=== PATIENT | female | born 1980 | race Caucasian/White ===

== ENCOUNTER → 2023-02-28 09:59 | Outpatient (BNVA) | payer OTHER, SELFPAY | PROVIDERS: Visit Provider Physician Assistant | DX: Z13.89 Encounter for screening for other disorder (principal) ==

== ENCOUNTER → 2023-03-05 08:03 | Outpatient (BNVA) | payer OTHER, SELFPAY | PROVIDERS: Visit Provider Surgery ==

== ENCOUNTER → 2023-03-19 10:00 | Outpatient (BNVA) | payer OTHER, SELFPAY | PROVIDERS: Visit Provider Counselor Mental Health ==

== ENCOUNTER 2023-03-21 09:20 | Outpatient (REF) | payer OTHER, SELFPAY ==
--- NOTE | ~2023-03-21 | XR_ITS ---
EXAMINATION: XR CHEST CLINICAL INFORMATION: Obesity COMPARISON: None available. TECHNIQUE: 2 views of the chest were obtained. FINDINGS: No significant abnormality is noted involving the heart, lungs, mediastinum, bony thorax or soft tissues. Mild curvature of the thoracic spine. XR/XR chest 2V IMPRESSION: Unremarkable examination.
--- NOTE | ~2023-03-21 | US_ITS ---
EXAMINATION: US COMPLETE ABDOMEN WITH LIVER ELASTOGRAPHY CLINICAL INFORMATION: Morbid obesity. COMPARISON: None available. TECHNIQUE: Real-time imaging of the abdominal viscera. Noninvasive ultrasound liver fibrosis assessment is performed using Ramon ElastPQ point quantification shear wave elastography (2D-SWE) with a C5-2 MHz transducer. Multiple elastography samples are obtained. FINDINGS: PANCREAS: Normal. The visualized pancreatic head and body are normal in appearance. The remainder of the pancreas is obscured from visualization by the overlying bowel gas. ABDOMINAL AORTA: The proximal, middle, and distal aortic segments are normal in caliber. INFERIOR VENA CAVA: Visualized portions are normal. LIVER: Normal. The liver demonstrates normal size, contour and slightly increased echogenicity. No focal lesion or intrahepatic biliary duct dilatation. The right lobe measures 13.7 cm in length. The left lobe measures 9.7 cm in length. Portal flow is towards the liver (hepatopetal). Shear wave liver elastography median stiffness is 2.22 m/s (reference: normal median stiffness is 1.3 m/s or less). IQR/median stiffness to assess sampling precision is 0.12 (reference: good quality data set is IQR/median stiffness of 0.15 or less). GALLBLADDER: A 6 mm gallstone is seen towards the neck portion. The gallbladder is physiologically distended without evidence of sludge, polyps, wall thickening or pericholecystic fluid. COMMON BILE DUCT: Normal in caliber measuring 0.5 cm in diameter. RIGHT KIDNEY: Normal. No hydronephrosis. No renal calculi or focal parenchymal lesions. The kidney measures 9.9 cm in maximum dimension. LEFT KIDNEY: Normal. No hydronephrosis. No renal calculi or focal parenchymal lesions. The kidney measures 9.7 cm in maximum dimension. SPLEEN: Normal. The spleen measures 10.4 cm in maximum dimension. FREE FLUID: None. US/US abdomen comp w elastography IMPRESSION: 1. There is mild increase in hepatic echotexture, consistent with fatty infiltration or hepatocellular disease. Please correlate clinically. No focal hepatic mass or intrahepatic biliary dilatation is seen. 2. Liver elastography: Measuremensts are consistent with compensated advanced chronic liver disease. 3. There is mild cholelithiasis. REFERENCE: Society of Radiologists in Ultrasound Liver Stiffness Thresholds (2020): LIVER STIFFNESS THRESHOLDS: *Liver Stiffness equal or less than 1.3 m/s: High probability of being normal. *Liver Stiffness less than 1.7 m/s: In the absence of other known clinical signs, rules out compensated advanced chronic liver disease. *Liver Stiffness 1.7-2.1 m/s: Suggestive of compensated advanced chronic liver disease but need further test for confirmation. *Liver Stiffness over 2.1 m/s: Rules in compensated advanced chronic liver disease. *Liver Stiffness over 2.4 m/s: Suggestive of clinically significant portal hypertension. QUALITY OF DATA SET: *IQR/Median value equal or less than 0.15 implies a quality data set. *IQR/Median value over 0.15 implies a poor quality data set. SIGNIFICANT CHANGE FROM PRIOR EXAM: Significant change if liver stiffness measurement is 10% or greater from prior exam. OTHER CONSIDERATIONS: The stage of liver fibrosis may be overestimated in the setting of acute hepatitis, liver inflammation, elevated liver function tests, hepatic vascular congestion, obstructive cholestasis, non-fasting state, and infiltrative diseases such as amyloidosis and lymphoma. In some patients with NAFLD, the liver stiffness thresholds for compensated advanced chronic liver disease may be lower. In causes other than viral hepatitis and NAFLD, liver stiffness thresholds are not well established.
--- NOTE | 2023-03-21 09:26 | ECG_ITS ---
Test Reason : E66.01 Blood Pressure : / mmHG Vent. Rate : 057 BPM Atrial Rate : 057 BPM P-R Int : 160 ms QRS Dur : 080 ms QT Int : 434 ms P-R-T Axes : 033 010 014 degrees QTc Int : 422 ms Sinus bradycardia Otherwise normal ECG No previous ECGs available Referred By: Mark Jennings Electronically Signed By:NOLAN MORALES
[2023-03-21 09:52] LABS: MANUAL DIFF FLAG NO
[2023-03-21 10:34] LABS: Basophils Absolute Auto 0.1 X10*3/uL (0.0-0.2); Basophils Percent Auto 1.1 % (0-2); Eosinophils Absolute Auto 0.1 X10*3/uL (0.0-0.4); Eosinophils Percent Auto 1.7 % (0-4); Hematocrit 38.1 % (37.0-47.0); Hemoglobin 11.6 g/dl (12.0-16.0); Imm Gran Abs Auto 0.01 X10*3/uL (0.00-0.03); Imm Gran Pct Auto 0.2 % (0.0-0.4); Lymphocytes Absolute Auto 1.7 X10*3/uL (1.2-4.9); Lymphocytes Percent Auto 35.7 % (20-40); Mean Corpuscular HGB Conc 30.4 g/dl (31.0-35.0); Mean Corpuscular Hemoglobin 24.7 pg (27.0-33.0); Mean Corpuscular Volume 81.1 fL (80.0-98.0); Mean Platelet Volume 10.7 fL (9.4-12.3); Monocytes Absolute Auto 0.3 X10*3/uL (0.1-1.2); Monocytes Percent Auto 6.1 % (2-11); Neutrophils Absolute Auto 2.6 x10*3/uL (2.0-8.3); Neutrophils Percent Auto 55.2 % (45-73); Platelet Count 284 X10*3/uL (160-400); Red Cell Distribution Width 15.4 % (11.0-16.0); White Blood Count 4.8 X10*3/uL (4.8-10.8)
[2023-03-21 11:00] LABS: Estimated Average Glucose 94 mg/dL; Hemoglobin A1c % 4.9 %
[2023-03-21 11:08] LABS: Alanine Aminotransferase 13 U/L (0-31); Albumin Level 4.2 g/dL (3.5-5.0); Alkaline Phosphatase 66 U/L (39-117); Anion Gap 14 (12-20); Aspartate Amino Transferase 16 U/L (5-31); Bilirubin Total 0.4 mg/dL (0.0-1.0); Blood Urea Nitrogen 16 mg/dL (9-16); C Reactive Protein 0.66 mg/dL (< or = 0.50); Calcium 9.1 mg/dL (8.4-10.2); Carbon Dioxide 26 mmol/L (22-29); Chloride 106 mmol/L (96-108); Cholesterol 209 mg/dL; Estimated Glomerular Filt Rate > 60; Glucose Random 84 mg/dL (60-115); HDL Cholesterol 43 mg/dL; Iron 33 mcg/dL (30-160); LDL Cholesterol Calculated 141 mg/dl; Percent Iron Saturation 9 % (15-50); Potassium 4.3 mmol/L (3.3-5.1); Sodium 142 mmol/L (135-145); Total Iron Binding Capacity 360 mcg/dL (228-428); Total Protein 7.4 g/dL (6.5-8.0); Triglycerides 127 mg/dL; Unsaturated Iron Binding 327 ug/dL
[2023-03-21 11:38] LABS: Ferritin 9 ng/mL (10-250); Folate 16.4 ng/mL (> or = 4.0); Insulin 3 uU/mL (2-29); TSH reflex Free T4 4.13 uIU/mL (0.32-4.0); Vitamin B12 443 pg/mL (200-900); Vitamin D 25-OH Total 31.3 ng/mL (>30)
[2023-03-21 12:16] LABS: Free T4 (Free Thyroxine) 0.96 ng/dL (0.71-1.85)
[2023-03-22 18:49] LABS: PTHI 47 pg/mL (16-77)
[2023-03-25 14:59] LABS: H Pylori Breath Test Negative (Negative)
[2023-03-29 01:29] LABS: Zinc 86 mcg/dL (60-130)
== END 2023-03-21 09:21 | disposition home or self-care (01) ==
LOC: HO.US 09:20
PROVIDERS: PCP Nurse Practitioner Family; Visit Provider Surgery
DX: E66.01 Morbid (severe) obesity due to excess calories (principal); F32.A Depression, unspecified; F41.9 Anxiety disorder, unspecified; E78.5 Hyperlipidemia, unspecified; M19.90 Unspecified osteoarthritis, unspecified site
CPT/HCPCS: 36415; 71046; 76705; 76981; 80053; 80061; 82306; 82607; 82728; 82746; 83013; 83036; 83525; 83540; 83970; 84425; 84439; 84443; 84590; 84630; 85025; 86140; 93005

== ENCOUNTER → 2023-03-30 10:39 | Outpatient (BNVA) | payer OTHER, SELFPAY | PROVIDERS: PCP Nurse Practitioner Family; Visit Provider Surgery ==

== ENCOUNTER → 2023-04-04 08:08 | Outpatient (BNVA) | payer OTHER, SELFPAY | PROVIDERS: PCP Nurse Practitioner Family; Visit Provider Surgery ==

== ENCOUNTER → 2023-04-11 10:51 | Outpatient (BNVA) | payer OTHER, SELFPAY | PROVIDERS: PCP Nurse Practitioner Family; Visit Provider Dietitian, Registered | DX: E66.01 Morbid (severe) obesity due to excess calories (principal); Z71.3 Dietary counseling and surveillance | CPT/HCPCS: 97802 ==

== ENCOUNTER 2023-05-07 10:14 | Outpatient (AMB) | payer OTHER, SELFPAY ==
--- NOTE | 2023-05-07 09:14 | MHC.WMTHER ---
Intake Intake Visit Reasons: VIDEO f/u Allergies Penicillins Allergy (Mild, Verified 03/30/23 10:44) Unknown phenergan Allergy (Uncoded 03/30/23 10:44) Hallucinations PFSH Medical History Anxiety Depression DJD (degenerative joint disease) Hyperlipemia Morbid obesity Surgical History No history of previous surgery Family History Mother Diabetes Father Lung cancer Brother Heart disease Brother Cancer Brother No problems noted. Brother No problems noted. Sister Chronic pain Fibromyalgia Sister No problems noted. Sister Breast cancer Son No problems noted. Daughter No problems noted. Social History Alcohol intake: current Alcohol intake frequency: a few times a month Patient Tobacco Use Status: Never used Tobacco Behavioral Health Assessment Weight Management Therapy Therapy Notes Details PT is a 42 year old, , female who presents for a Follow up after completing assessment on 03/19 as part of the Surgical Weight -loss program. PT reported today she is doing very well with meal plan, reported to be focusing on conscious eating and been realizing the importnce of having scheduled/consistent meals for less hunger/cravings. We repeated BES and scores decreased, showing patient has made behavioral changes and is in the right path. PT has been cleared since 03/19 from the behavioral health standpoint. Presenting Concerns Referral Source WMP provider. Reason for referral Completion of behavioral health assessment as part of process for weight-loss surgery. Precipitating Event Medical issues. Living Situation Current Living Situation Own At risk of losing current housing? No Satisfied with current living situation? Yes Comments P lives with and 2 children. Food/Weight/Diet Expectations of change Goal to lose 10% of your weight before surgery, which is about 19lbs. Ultimate weight goal: 179lbs before surgery History/Relationship with food PT describes her relationship with food as challenging , as is an Up and down relationship. She's Never hungry in the morning, basically before staring the program, she didn't have an structure for meals and would snack while watching TV. Used to skip breakfast, mainly eat when she felt like it and will have dinner at home. 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 History/Relationship with weight Grew up overweight. Highest weight is current weight. Lowest weight 113 as a teen. After 2nd she gained weight. For the past couple years she has experience stress eating, tends to make unhealthy choices, and overeating. History/Relationship with dieting [employer] watchers multiple times. Active with gym, She was more successful losing weight before having children. Binge Eating Do you frequently eat large amounts of food in short periods of time, not feeling physically hungry? Yes Do you feel out of control when you eat a large amount of food in a short period of time? Yes Do you eat large amounts of food rapidly and typically alone? No Night Eating Do you wake up at least once during the night to eat? No If you wake up in the night, do you find that it is necessary to eat something in order to fall back asleep? No Do you have little or no appetite in the morning and feel very hungry in the evening, often overeating between dinner and when you go to bed? Yes Social History Family history and relationship 14 years ago. 2 children (15 y/o son and 17 y/o daughter). 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 has several medical complications. 1 cat. Developmental history and status None Social support friends, family. 3 co-workers had bariatric surgery. Community support None. Gnosticism/Spirituality Sikhism. not attending restoration consistently. Cultural/Ethnic information . Legal Involvement and History Current or historical involvement with the legal system? none. Education Highest grade completed Masters Degree in Counseling Preferred learning style Auditory, Verbal and Written Currently enrolled in educational program? No Interested in further educational program? 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 No Meaningful activities Gardening, yard work, family activities, kids sporting events. Financial Situation Describe current financial situation Comfortable Financial assistance? None Service Service? No Mental Health and Addiction Treatment Current/Past substance abuse? No Current/Past addictive behavior concerns? No Psychiatric history Was in counseling 14 years ago, attended [facility] for a short period of time. PCP is prescribing Paxil for mood/anxiety and Gabapentin as needed for anxiety/stress. Never hospitalized for MH. Medical and Physical Health Summary Additional Medical History not covered in history None Sexual History concerns None Physical exam in the last year? Yes Pain Screening Current pain? No Pain in the last few months? Yes (due sciatica.) Medications Is the patient compliant with medications? Yes Does the patient have Avendaño Guardian in place? Not applicable Does the patient use complimentary health approaches? No Trauma/Abuse History History of trauma? No Questionnaires Binge Eating Scale Group 1 A. I don't feel self-conscious about my wt. or body size when I'm with others. B. I feel concerned about how I look to others, but it normally does not make me fell disappointed with myself C. I do get self-conscious about my appearance and wt. which makes me feel disappointed in myself. D. I feel very self-conscious about my wt. and frequently I feel intense shame and disgust for myself. I try to avoid social contacts because of my self-consciousness. Response Group 1: C Group 2 A. I don't have any difficulty eating slowly in the proper manner. B. Although I seem to gobble down foods, I don't end up feeling stuffed because of eating to much. C. At times, I tend to eat quickly and then, I feel uncomfortably full afterwards. D. I have the habit of bolting down my food, without really chewing it. When this happens I usually feel uncomfortably stuffed because I've eaten to much. Response Group 2: A Group 3 A. I feel capable to control my eating urges when I want to. B. I feel like I have failed to control my eating more than the average person. C. I feel utterly helpless when it comes to feeling in control of my eating urges. D. Because I feel so helpless about controlling my eating I have become very desperate about trying to get control. Response Group 3: A Group 4 A. I don't have the habit of eating when I'm bored. B. I sometimes eat when I'm bored, but often I'm able to get busy and get my mind off food. C. I have a regular habit of eating when I'm bored, but occasionally, I can use some other activity to get my mind off eating. D. I have a strong habit of eating when I'm bored. Nothing seems to help me breath the habit. Response Group 4: B Group 5 A. I'm usually physically hungry when I eat something. B. Occasionally, I eat something on impulse even though I really am not hungry. C. I have the regular habit of eating foods, that I might not really enjoy, to satisfy a hungry feeling even though physically, I don't need the food. D. Although I'm not physically hungry, I get a hungry feeling in my mouth that only seems to be satisfied when I eat a food, like sandwich, that fills my mouth. Sometimes, when I eat the food to satisfy my mouth hunger, I then spit the food out so I won't gain weight. Response Group 5: A Group 6 A. I don't feel any guilt or self-hate after I overeat. B. After I overeat, occasionally I feel guilt or self-hate. C. Almost all the time I experience strong guilt or self-hate after I overeat. Response Group 6: B Group 7 A. I don't lose total control of my eating when dieting even after periods when I overeat. B. Sometimes when I eat a forbidden food on a diet, I feel like I blew it and eat even more. C. Frequently, I have the habit of saying to myself, I've blown it now, why not go all the way, when I overeat on a diet. When that happens I eat more. D. I have a regular habit of starting a strict diets for myself but I break the diets by going on an eating binge. My life seems to be either a feast or famine. Response Group 7: C Group 8 A. I rarely eat so much food that I feel uncomfortably stuffed afterwards. B. Usually about once a month, I each such a quantity of food, I end up feeling very stuffed. C. I have regular periods during the month when I eat large amounts of food, either at mealtime or at snacks. D. I eat so much food that I regularly feel quite uncomfortable after eating and sometimes a bit nauseous. Response Group 8: A Group 9 A. My level of calorie intake does not go up very high or go down very low on a regular basis. B. Sometimes after I overeat, I will try to reduce my caloric intake to almost nothing to compensate for the excess calories I've eaten. C. I have a regular habit of overeating during the night. It seems that my routine is not to be hungry in the morning but overeat in the evening. D. In my adult years, I have had week-long periods where I practically starve myself. This follows periods when I overeat. It seems I live a life of either feast or famine. Response Group 9: A Group 10 A. I usually am able to stop eating when I want to. I know when enough is enough. B. Every so often, I experience a compulsion to eat which I can't seem to control. C. Frequently, I experience strong urges to eat which I seem unable to control, but at other times I can control my eating urges. D. I feel incapable of controlling urges to eat. I have a fear of not being able to stop eating voluntarily. Response Group 10: A Group 11 A. I don't have any problem stopping eating when I feel full. B. I usually can stop eating when I feel full but occasionally overeat leaving me feeling uncomfortably stuffed. C. I have a problem stopping eating once I start and usually I feel uncomfortably stuffed after I eat a meal. D. Because I have a problem not being able to stop eating when I want, I sometimes have to induce vomiting to relieve my stuffed feeling. Response Group 11: A Group 12 A. I seem to eat just as much when I'm with others, Family social gatherings as when I'm by myself. B. Sometimes, when I'm with other persons, I don't eat as much as I want to eat because I'm self-conscious about my eating. C. Frequently, I eat only a small amount of food when others are present, because I'm very embarrassed about my eating. D. I feel so ashamed about overeating that I pick times to overeat when I know no one will see me. I feel like a closet eater. Response Group 12: A Group 13 A. I eat three meals a day with only an occasional between meal snack. B. I eat 3 meals a day, but I also normally snack between meals. C. When I am snacking heavily, I get in the habit of skipping regular meals. D. There are regular periods when I seem to be continually eating, with no planned meals. Response Group 13: A Group 14 A. I don't think much about trying to control unwanted eating urges. B. At least some of the time, I feel my thoughts are pre-occupied with trying to control my eating urges. C. I feel that frequently I spend much time thinking about how much I ate or about trying not to eat anymore. D. It seems to me that most of my waking hours are pre-occupied by thoughts about eating or not eating. I feel like I'm constantly struggling not to eat. Response Group 14: B Group 15 A. I don't think about food a great deal. B. I have strong craving for food but they last only for brief periods of time. C. I have days when I can't seem to think about anything else but food. D. Most of my days seem to be pre-occupied with thoughts about food. I feel like I live to eat. Response Group 15: B Group 16 A. I usually know whether or not I'm physically hungry. I take the right portion of food to satisfy me. B. Occasionally, I feel uncertain about knowing whether or not I'm physically hungry. A these times it's hard to know how much food I should take to satisfy me. C. Even though I might know how many calories I should eat, I don't have any idea what is a normal amount of food for me. Response Group 16: A Binge Eating Score: 8 Score less than 17 Minimal Risk Score between 18-26 Moderate Risk Score between 27-46 High Risk Assessment & Plan Assessment & Plan (1) Adjustment disorder: Code(s): F43.20 - Adjustment disorder, unspecified (2) Eating disorder: Code(s): F50.9 - Eating disorder, unspecified Plan -PT is cleared and there is no need to f/up with this provider. -Clinician has advised client about available resources if ever in need to access additional support and has encourage client to participate in post-op groups. Telehealth Telehealth Location of provider rendering services: other (Home office, [place], [place]. ) Location of patient: address on file Patient Identification confirmed using: Name, : Yes Telehealth method: video Patient verbally consented to treatment: Yes Patient verbally consented to billing insurance company: Yes Patient informed of any privacy concerns related to visit: Yes Minutes spent on Phone/Video with Pt.: 45 Coding Level of Care Code Established Pt Tele Psytx 45 mins (54017) Patient Type Established Diagnoses Adjustment disorder F43.20 Eating disorder F50.9 Time Spent (min) 45
== END 2023-05-07 11:11 | disposition home or self-care (01) ==
LOC: HO.HBST 10:14
PROVIDERS: PCP Nurse Practitioner Family; Visit Provider Counselor Mental Health
DX: F43.20 Adjustment disorder, unspecified (principal); F50.9 Eating disorder, unspecified
CPT/HCPCS: 90834

== ENCOUNTER → 2023-05-07 10:14 | Outpatient (BNVA) | payer OTHER, SELFPAY | PROVIDERS: PCP Nurse Practitioner Family; Visit Provider Counselor Mental Health ==

== ENCOUNTER 2023-05-09 09:39 | Outpatient (REF) | payer OTHER, SELFPAY ==
--- NOTE | ~2023-05-09 | FL_ITS ---
EXAMINATION: XR FLUOROSCOPY UPPER GI WITH AIR CLINICAL INFORMATION: Obesity. COMPARISON: None available. TECHNIQUE: Air-contrast upper GI examination. FINDINGS: There is normal apposition of vocal cords while saying E. There is normal elevation of the soft palate while saying candy. Patient swallowed thin and thick barium and half-inch diameter barium tablet without difficulty. No nasopharyngeal reflux or tracheal aspiration identified. No Zenker's diverticulum is seen. There is normal esophageal motility. No gastroesophageal reflux was elicited. No hiatal hernia seen. No mucosal abnormality appreciated. The stomach demonstrates normal distensibility without abnormal mass or ulceration. There is no delay in gastric emptying. The duodenal bulb and sweep appear unremarkable. FLUOROSCOPY TIME: 1.8 minutes FLUOROSCOPIC IMAGES: 14. DAP: 16.799 Gy-cm2 (chin-centimeter squared) FL/FL upper GI w air IMPRESSION: Unremarkable examination.
== END 2023-05-09 09:40 | disposition home or self-care (01) ==
LOC: HO.XRAY 09:39
PROVIDERS: PCP Nurse Practitioner Family; Visit Provider Surgery
DX: E66.01 Morbid (severe) obesity due to excess calories (principal); E78.5 Hyperlipidemia, unspecified
CPT/HCPCS: 74246

== ENCOUNTER → 2023-05-09 09:41 | Outpatient (BNV) | payer OTHER, SELFPAY | PROVIDERS: PCP Nurse Practitioner Family; Visit Provider Radiology Diagnostic Radiology | DX: E66.9 Obesity, unspecified (principal) | CPT/HCPCS: 74246 ==

== ENCOUNTER 2023-05-10 10:00 | Outpatient (AMB) | payer OTHER, SELFPAY ==
[2023-05-10 08:40] VITALS: BMI 36.8
--- NOTE | 2023-05-10 08:40 | A.OFFVIS_ITS ---
Intake VS Expanded 05/10/23 08:40 Height 4 ft 11 in Weight 182 lb 3.2 oz BMI 36.8 Intake Visit Reasons: VIDEO F/U [facility] Wrapper Sorter Required: No Allergies Penicillins Allergy (Mild, Verified 03/30/23 10:44) Unknown phenergan Allergy (Uncoded 03/30/23 10:44) Hallucinations Medication List - Last Reconciled 05/10/23 by LAUREL Oscar gabapentin 300 mg PO TID hydroxyzine HCl 25 mg PO DAILY levothyroxine (Levoxyl) 25 mcg PO DAILY paroxetine HCl ER 37.5 mg PO DAILY HPI HPI Comments History of Present Illness Details 42 yo female returns to the [facility] clinic for continued pre-op planning. Weight today is 182.2 pounds with a BMI of 36.8 Initial weight on 03/05/23 was 198.4 with a BMI of 40 Weight loss to date, 16.2 pounds, 8.1 % TBWL Pt reports that things are going fine. Hungry in early afternoon Meal plan: 2 Orgain shakes (1/2 scoop in almond milk), 9-11, 12-2 one Isopure Infusion protein shake with 1/4 scoop in 8oz water, 9-11p 2 Zone Perfect protein bars, 3-5, 11-1a one meal 8 forks of protein and 8 forks of salad or vegetables), 6 pm Drinking 48 oz water Exercise plan: treadmill, elliptical, walking, Matheus Pierre video, Burning [id number] calories per week. [facility] Medical History Anxiety Depression DJD (degenerative joint disease) Hyperlipemia Morbid obesity Surgical History No history of previous surgery Family History Mother Diabetes Father Lung cancer Brother Heart disease Brother Cancer Brother No problems noted. Brother No problems noted. Sister Chronic pain Fibromyalgia Sister No problems noted. Sister Breast cancer Son No problems noted. Daughter No problems noted. Social History Alcohol intake: current Alcohol intake frequency: a few times a month Patient Tobacco Use Status: Never used Tobacco Assessment & Plan Assessment & Plan (1) Obesity: Code(s): E66.9 - Obesity, unspecified Plan: making good progress change meal plan to as she has not been having the bar at 11-1 am but wants to keep it in the plan, will eliminate the 1/4 scoop isopure shake 2 Orgain shakes (1/2 scoop in almond milk), 9-11a, 12-2p 2 Zone Perfect protein bars, 3-5p, 8-10p one meal 8 forks of protein and 8 forks of salad or vegetables), 6 pm Reminded of upcoming appt w Dr Hercules 06/04/23 Telehealth Telehealth Location of provider rendering services: practice address Location of patient: address on file Patient Identification confirmed using: Name, : Yes Telehealth method: video Patient verbally consented to treatment: Yes Patient verbally consented to billing insurance company: Yes Patient informed of any privacy concerns related to visit: Yes Minutes spent on Phone/Video with Pt.: 12 Coding Level of Care Code Tele Est Pt Level 3 (58077) Diagnoses Obesity E66.9 Time Spent (min) 18
== END 2023-05-10 10:55 | disposition home or self-care (01) ==
LOC: HO.HBS 10:00
PROVIDERS: PCP Nurse Practitioner Family; Visit Provider Physician Assistant Surgical
DX: E66.9 Obesity, unspecified (principal); Z68.36 Body mass index [BMI] 36.0-36.9, adult
CPT/HCPCS: 99213

== ENCOUNTER → 2023-05-10 10:00 | Outpatient (BNVA) | payer OTHER, SELFPAY | PROVIDERS: PCP Nurse Practitioner Family; Visit Provider Physician Assistant Surgical ==

== ENCOUNTER 2023-05-18 08:31 | Outpatient (AMB) | payer OTHER, SELFPAY ==
[2023-05-18 08:33] VITALS: BP 127/58; PULSE 66; BMI 36.8
--- NOTE | 2023-05-18 08:33 | A.OFFVIS_ITS ---
Intake Vital Signs 05/18/23 08:33 Height 4 ft 11 in Weight 182 lb BMI 36.8 BP 127/58 L Blood Pressure Location Rt brachial Position Sitting Pulse 66 Intake Visit Reasons: Gallbladder, 1 mo follow up Intake Note: This patient presents for a one month follow-up for gallbladder. Patient denies complaints at this time. Director Underwriter Sales Required: No Shipboard Intelligence Analyst: Shipboard Intelligence Analyst offered & declined Accompanied by: Self / Same As Patient Allergies Penicillins Allergy (Mild, Verified 05/18/23 08:38) Unknown phenergan Allergy (Uncoded 05/18/23 08:38) Hallucinations Medication List - Last Reconciled 05/18/23 by Az Arteaga MD gabapentin 300 mg PO TID hydroxyzine HCl 25 mg PO DAILY levothyroxine (Levoxyl) 25 mcg PO DAILY paroxetine HCl ER 37.5 mg PO DAILY HPI HPI Comments History of Present Illness Details The patient is a 42-year-old woman with a lifelong struggle with obesity who is enrolled in the surgical weight loss program and during her workup, noted to have a 6 mm gallstone in the neck of her gallbladder as well as hepatic fibrosis with the shear wave of 2.22 and NAFLD. Patient denies any personal or family history of biliary disease. She notes intermittent issues with indigestion but is always assume that these are secondary to dietary indiscretion or overeating but she denies any tip biliary colic type symptoms. The patient returns for follow-up and continues to deny any significant symptoms. In fact, the patient notes that on her bariatric preoperative diet she has no further indigestion and no symptoms suggestive of biliary colic. She is congratulated on her interval weight loss and notes she is tentatively headed towards sleeve gastrectomy and the half of May. She otherwise denies interval change. She denies any prior intra-abdominal surgery. [facility] Medical History Anxiety Depression DJD (degenerative joint disease) Hyperlipemia Morbid obesity Surgical History No history of previous surgery Family History Mother Diabetes Father Lung cancer Brother Heart disease Brother Cancer Brother No problems noted. Brother No problems noted. Sister Chronic pain Fibromyalgia Sister No problems noted. Sister Breast cancer Son No problems noted. Daughter No problems noted. Social History Alcohol intake: current Alcohol intake frequency: a few times a month Patient Tobacco Use Status: Never used Tobacco Review of Systems Const All systems reviewed & are unremarkable except as noted in HPI and below Reports as per HPI Physical Exam On exam she is in good spirits She is nontoxic Sclera anicteric Abdomen is obese and soft with no tenderness and no obvious hernias Results Reviewed Results Reviewed: Abdominal ultrasound dated 03/21/2023 shows is stiff liver/fibrosis at 2.22; a 6 mm gallstone is noted in the neck of the gallbladder and NAFLD is noted Patient's labs show white blood cell count of 4.8 with normal differential, mild anemia with a hemoglobin of 11.6 with hypochromic indices and iron studies are low, platelet count 284 K BUN 16, creatinine 0.73 Hemoglobin A1c is 4.9 Liver function tests within normal parameters Assessment & Plan Assessment & Plan (1) Cholelithiasis: Code(s): K80.20 - Calculus of gallbladder without cholecystitis without obstruction (2) NAFLD (nonalcoholic fatty liver disease): Code(s): K76.0 - Fatty (change of) liver, not elsewhere classified (3) Liver fibrosis: Code(s): K74.00 - Hepatic fibrosis, unspecified (4) BMI 37.0-37.9, adult: Code(s): Z68.37 - Body mass index [BMI] 37.0-37.9, adult (5) Obesity: Code(s): E66.9 - Obesity, unspecified (6) Hyperlipemia: Code(s): E78.5 - Hyperlipidemia, unspecified Plan The patient continues to deny any symptoms related to her gallbladder and was hopeful that her cholecystectomy could be done at the time of sleeve gastrectomy. I reviewed available data to explain this practice is not typically endorsed. The patient voiced concerns regarding her bariatric surgery time line and is encouraged to follow-up with Dr. Jennings in the bariatric program as previously arranged. She will contact me if she has indigestion or bandlike abdominal pain and I explained this may impact on her bariatric surgery schedule, but since she has been asymptomatic, I do not anticipate this. Following bariatric surgery, the patient is free to contact the office regarding her gallstones and the patient noted that she would likely do this later this year or early next year. Coding Level of Care Code Est Pt Level 4 (34331) Diagnoses Cholelithiasis K80.20 NAFLD (nonalcoholic fatty liver disease) K76.0 Liver fibrosis K74.00 BMI 37.0-37.9, adult Z68.37 Obesity E66.9 Hyperlipemia E78.5
== END 2023-05-18 09:19 | disposition home or self-care (01) ==
PROVIDERS: PCP Nurse Practitioner Family; Visit Provider Surgery
DX: K80.20 Calculus of gallbladder without cholecystitis without obstruction (principal); K76.0 Fatty (change of) liver, not elsewhere classified; K74.00 Hepatic fibrosis, unspecified; Z68.37 Body mass index [BMI] 37.0-37.9, adult; E66.9 Obesity, unspecified; E78.5 Hyperlipidemia, unspecified
CPT/HCPCS: 99214

== ENCOUNTER → 2023-05-18 08:31 | Outpatient (BNVA) | payer OTHER, SELFPAY | PROVIDERS: PCP Nurse Practitioner Family; Visit Provider Surgery ==

== ENCOUNTER 2023-06-04 07:51 | Outpatient (AMB) | payer OTHER, SELFPAY ==
--- NOTE | 2023-06-04 11:05 | A.OFFVIS_ITS ---
Intake VS Expanded 06/04/23 11:17 Height 4 ft 11 in Weight 176 lb BMI 35.5 Body Fat 81.3 Body Fat Percentage 46.2 Free Fat Mass 95 Visceral Mass 18 Water Mass 64.9 BMR 1,291 Intake Visit Reasons: TV Follow Up SWL Allergies Penicillins Allergy (Mild, Verified 05/18/23 08:38) Unknown phenergan Allergy (Uncoded 05/18/23 08:38) Hallucinations HPI TV Follow Up SWL HPI Details Start time: 11.03am, End time: 11.23am ?I spent 15 minutes speaking with the patient on the phone plus an additional 5 minutes reviewing and updating records for a total of 20 minutes HPI Comments History of Present Illness Details Overall weight loss: 21.8lbs, or 11% TBWL Is doing 2 Orgain protein shakes (1/2 scoop each in 8oz almond milk), 1 Zone Perfect protein bar and one meal (8 forkfuls of protein and 8 forkfuls of salad or vegetables) Exercise: Gym x4-5/wk doing the treadmill x4/wk for 500-600 calories or the stationary bike for 200 calories plus the treadmill for 400 calories PFSH Medical History Anxiety Depression DJD (degenerative joint disease) Hyperlipemia Morbid obesity Surgical History No history of previous surgery Family History Mother Diabetes Father Lung cancer Brother Heart disease Brother Cancer Brother No problems noted. Brother No problems noted. Sister Chronic pain Fibromyalgia Sister No problems noted. Sister Breast cancer Son No problems noted. Daughter No problems noted. Social History Alcohol intake: current Alcohol intake frequency: a few times a month Patient Tobacco Use Status: Never used Tobacco Assessment & Plan Assessment & Plan (1) Hypothyroidism: Code(s): E03.9 - Hypothyroidism, unspecified (2) Obesity: Code(s): E66.9 - Obesity, unspecified Plan: 1. Plan for lap sleeve gastrectomy including upper GI endoscopy. All tests has been completed and reviewed and the patient is cleared for the surgery. ?If diaphragmatic or ventral hernias are present at time of surgery, these will be repaired laparoscopically as well. Risks and complications were discussed in detail including possible conversion to an open procedure, anastomotic leak, bleeding requiring transfusion, small bowel obstruction, , DVT and pulmona ry embolism, cardiac, or pulmonary complications, as senior living complications such as anastomotic ulcer, insufficient weight loss and vitamin deficiencies. I emphasized the importance of close follow-up, adherence to instructions and good communication. So far she has proven to be an excellent communicator and very compliant with all our directions accomplishing a great weight loss. I believe that she is an excellent candidate and she is ready. 2. Please change the nutritional plan to one Orgain protein shake (1/2 scoop each in 8oz almond milk) at 9am-11am, 1 Zone Perfect protein bar at 12pm-2pm, one Orgain protein shake (1/2 scoop each in 8oz almond milk) at 3pm-5pm, one meal (8 forkfuls of protein and 8 forkfuls of salad or vegetables) at 6pm and if needed another Zone Perfect protein bar at 8pm-10pm. 3. Exercise: Continue same exercise plan of Gym x4-5/wk doing the treadmill x4/wk for 500-600 calories or the stationary bike for 200 calories plus the treadmill for 400 calories 4. Send me weight measurements weekly as of next Sunday (3) BMI 35.0-35.9,adult: Code(s): Z68.35 - Body mass index [BMI] 35.0-35.9, adult Medications: New levothyroxine 25 mcg PO DAILY 90 caps 2RF E03.9 - Hypothyroidism, unspecified Telehealth Telehealth Location of provider rendering services: practice address Location of patient: address on file Patient Identification confirmed using: Name, : Yes Telehealth method: voice only Patient verbally consented to treatment: Yes Patient verbally consented to billing insurance company: Yes Patient informed of any privacy concerns related to visit: Yes Minutes spent on Phone/Video with Pt.: 20 Coding Level of Care Code Tele Est Pt Level 3 (57239) Diagnoses Hypothyroidism E03.9 Obesity E66.9 BMI 35.0-35.9,adult Z68.35 Time Spent (min) 20
[2023-06-04 11:17] VITALS: BMI 35.5
== END 2023-06-04 11:24 | disposition home or self-care (01) ==
LOC: HO.HBS 07:51
PROVIDERS: PCP Nurse Practitioner Family; Visit Provider Surgery
DX: E03.9 Hypothyroidism, unspecified (principal); E66.9 Obesity, unspecified; Z68.35 Body mass index [BMI] 35.0-35.9, adult
CPT/HCPCS: 99213

== ENCOUNTER → 2023-06-04 07:51 | Outpatient (BNVA) | payer OTHER, SELFPAY | PROVIDERS: PCP Nurse Practitioner Family; Visit Provider Surgery ==

== ENCOUNTER 2023-06-11 08:22 | Outpatient (AMB) | payer OTHER, SELFPAY ==
--- NOTE | 2023-06-11 10:38 | A.OFFVIS_ITS ---
Intake VS Expanded 06/11/23 10:40 Height 4 ft 11 in Weight 176 lb BMI 35.5 Body Fat 81.3 Body Fat Percentage 46.2 Free Fat Mass 95 Visceral Mass 18 Water Mass 64.9 BMR 1,291 Intake Visit Reasons: TV Pre Op LSG 06/21/23 Allergies Penicillins Allergy (Mild, Verified 06/11/23 11:16) Unknown phenergan Allergy (Uncoded 06/11/23 11:16) Hallucinations Medication List - Last Reconciled 06/11/23 by Mark Jennings MD gabapentin 300 mg PO TID hydroxyzine HCl 25 mg PO DAILY levothyroxine (Levoxyl) 25 mcg PO DAILY levothyroxine 25 mcg PO DAILY levothyroxine 25 mcg PO DAILY ondansetron 4 mg PO Q12H pantoprazole 40 mg PO DAILY paroxetine HCl ER 37.5 mg PO DAILY polyethylene glycol 3350 (Miralax) 17 grams PO DAILY sucralfate 10 mL PO BID HPI TV Pre Op LSG 06/21/23 HPI Details Start time: 11.07am, End time: 11.27am ?I spent 15 minutes speaking with the patient on the phone plus an additional 5 minutes reviewing and updating records for a total of 20 minutes HPI Comments History of Present Illness Details Overall weight loss: 21.8lbs, or 11% TBWL Is doing 2 Orgain protein shakes (1/2 scoop each in 8oz almond milk), 1-2 Zone Perfect protein bar and one meal (8 forkfuls of protein and 8 forkfuls of salad or vegetables) Exercise: Gym x4-5/wk doing the treadmill x4/wk for 500-600 calories or the stationary bike for 200 calories plus the treadmill for 400 calories ? PFSH Medical History Anxiety Depression DJD (degenerative joint disease) Hyperlipemia Morbid obesity Surgical History No history of previous surgery Family History Mother Diabetes Father Lung cancer Brother Heart disease Brother Cancer Brother No problems noted. Brother No problems noted. Sister Chronic pain Fibromyalgia Sister No problems noted. Sister Breast cancer Son No problems noted. Daughter No problems noted. Social History Alcohol intake: current Alcohol intake frequency: a few times a month Patient Tobacco Use Status: Never used Tobacco Physical Exam Vital Signs: BMI result Body Mass Index 35.5 Assessment & Plan Assessment & Plan (1) Obesity: Code(s): E66.9 - Obesity, unspecified Plan: 1. Plan for lap sleeve gastrectomy including upper GI endoscopy. All tests has been completed and reviewed and the patient is cleared for the surgery. ?If diaphragmatic or ventral hernias are present at time of surgery, these will be repaired laparoscopically as well. Risks and complications were discussed in detail including possible conversion to an open procedure, anastomotic leak, ble eding requiring transfusion, small bowel obstruction, , DVT and pulmonary embolism, cardiac, or pulmonary complications, as termite treater complications such as anastomotic ulcer, insufficient weight loss and vitamin deficiencies. I emphasized the importance of close follow-up, adherence to instructions and good communication. So far she has proven to be an excellent communicator and very compliant with all our directions accomplishing a great weight loss. I believe that she is an excellent candidate and she is ready. 2. Preop prescriptions were provided and explained the purpose of each one. Need to be purchased preop. Start Pantoprazole now as you get it from the pharmacy, 1 pill per day. Sucralfate and Zofran are for after surgery as needed. 3. Bowel prep: please do 7 packets ?of Miralax mixing each one with a an 8oz glass of water, crystal light, gatorade zero, or propel ?on 06/19/23 and the same amount on 06/20/23. Continue the protein shakes during? the bowel prep. 4. Needs to purchase 1oz medicine cups . 5. Needs to purchase Children's liquid Tylenol for postop pain control. 6. She needs to stop the Gabapentin on 06/16/23. Avoid aspirin, motrin, Advil, Aleve, Ibuprofen, Naproxyn. Tylenol is OK. 7. She needs to purchase the Celebrate 4:1 protein shakes from the hospital's gift shop. 8. Will do basic preop blood work-up any day between Sunday06/12/23 and Sunday06/15/23 fasting for 12 hours and is scheduled to see the Anesthesiologist prior to the day of surgery. 9. Importance of adherence to postop folllow-up and recommendations was underscored and she understands that. 10. Stop food and bars as of tomorrow 06/12/23 and continue with 4 ORGAIN protein shakes (ONE scoop EACH in 8oz almond milk) at 9am-11am, 12pm-2pm, 3pm-5pm, 6pm- 8pm and one more ORGAIN protein shake with TWO scoops in 8oz of almond milk at 9pm-11pm 11. No soups, broths or V8 12. The patient's?medical?history has been reviewed and they are considered low risk for post op DVT and therefore DVT prophylaxis is not considered necessary. Travel after surgery was reviewed. The patient has not disclosed any travel plans during the first 30 days after surgery and they have been advised that within the first 30 days after surgery any bus, plane, train or car travel over 2 hours in duration is contraindicated due to the possibility of developing blood clots from immobility. Any travel, needs to include periods of ambulation of 10 minutes in duration every 2 hours.? Patient was instructed to discuss any plans for travel during this period with their bariatric surgeon.? 13. Please take at the day of surgery the following medications: Levothyroxine only 14. Stop any control pills and don't use them for one month after surgery 15. Absolutely no smoking or vaping, or marijuana until the surgery and for at least the first 4 weeks. Only nicotine patches are allowed. 16. Send me weight measurements on Sunday and then on the day of surgery before you go to the hospital. 17. Avoid any steroids by mouth for any reason. Let me know if someone prescribes them to you (2) BMI 35.0-35.9,adult: Code(s): Z68.35 - Body mass index [BMI] 35.0-35.9, adult Orders: Orders Type and Screen Today E66.9 - Obesity, unspecified, Z68.36 - Body mass index [BMI] 36.0-36.9, adult Comprehensive Met. Panel Today E66.9 - Obesity, unspecified, Z68.36 - Body mass index [BMI] 36.0-36.9, adult C Reactive Protein Today E66.9 - Obesity, unspecified, Z68.36 - Body mass index [BMI] 36.0-36.9, adult Hemoglobin A1c Today E66.9 - Obesity, unspecified, Z68.36 - Body mass index [BMI] 36.0-36.9, adult Insulin Today E66.9 - Obesity, unspecified, Z68.36 - Body mass index [BMI] 36.0- 36.9, adult Lipid Panel Today E66.9 - Obesity, unspecified, Z68.36 - Body mass index [BMI] 36.0-36.9, adult TSH reflex Free T4 Today E66.9 - Obesity, unspecified, Z68.36 - Body mass index [BMI] 36.0-36.9, adult Prothrombin Time INR Today E66.9 - Obesity, unspecified, Z68.36 - Body mass index [BMI] 36.0-36.9, adult Partial Thromboplastin Time Today E66.9 - Obesity, unspecified, Z68.36 - Body mass index [BMI] 36.0-36.9, adult Complete Blood Count Auto Diff Today E66.9 - Obesity, unspecified, Z68.36 - Body mass index [BMI] 36.0-36.9, adult Medications: New pantoprazole 40 mg PO DAILY 30 tabs 2RF K21.9 - Gastro-esophageal reflux disease without esophagitis sucralfate 10 mL PO BID 400 mL 2RF K21.9 - Gastro-esophageal reflux disease without esophagitis ondansetron Only take one every 12 hours as needed if you have nausea 4 mg PO Q12H 20 tabs 0RF nausea and vomiting R11.0 - Nausea polyethylene glycol 3350 (Miralax) Mix each packet with 8oz of water, Crystal light, or Gatorade zero, or Propel and do 7 packets on 06/19/23 and another 7 packets on 06/20/23 17 grams PO DAILY 14 ea 0RF Z01.818 - Encounter for other preprocedural examination Telehealth Telehealth Location of provider rendering services: practice address Location of patient: address on file Patient Identification confirmed using: Name, : Yes Telehealth method: voice only Patient verbally consented to treatment: Yes Patient verbally consented to billing insurance company: Yes Patient informed of any privacy concerns related to visit: Yes Minutes spent on Phone/Video with Pt.: 20 Coding Level of Care Code Tele Est Pt Level 3 (67988) Diagnoses Obesity E66.9 BMI 35.0-35.9,adult Z68.35 Time Spent (min) 20
[2023-06-11 10:40] VITALS: BMI 35.5
== END 2023-06-11 11:28 | disposition home or self-care (01) ==
PROVIDERS: PCP Nurse Practitioner Family; Visit Provider Surgery
DX: E66.9 Obesity, unspecified (principal); Z68.35 Body mass index [BMI] 35.0-35.9, adult
CPT/HCPCS: 99213

== ENCOUNTER → 2023-06-11 08:22 | Outpatient (BNVA) | payer OTHER, SELFPAY | PROVIDERS: PCP Nurse Practitioner Family; Visit Provider Surgery ==

== ENCOUNTER 2023-06-15 08:49 | Outpatient (REF) | payer OTHER, SELFPAY ==
[2023-06-15 09:07] LABS: MANUAL DIFF FLAG NO
[2023-06-15 09:54] LABS: Basophils Percent Auto 0.6 % (0-2); Eosinophils Absolute Auto 0.1 X10*3/uL (0.0-0.4); Eosinophils Percent Auto 1.6 % (0-4); Hematocrit 37.8 % (37.0-47.0); Hemoglobin 11.5 g/dl (12.0-16.0); Imm Gran Abs Auto 0.02 X10*3/uL (0.00-0.03); Imm Gran Pct Auto 0.4 % (0.0-0.4); Lymphocytes Absolute Auto 1.4 X10*3/uL (1.2-4.9); Lymphocytes Percent Auto 27.9 % (20-40); Mean Corpuscular HGB Conc 30.4 g/dl (31.0-35.0); Mean Corpuscular Volume 82.2 fL (80.0-98.0); Mean Platelet Volume 10.9 fL (9.4-12.3); Monocytes Absolute Auto 0.3 X10*3/uL (0.1-1.2); Monocytes Percent Auto 6.7 % (2-11); Neutrophils Absolute Auto 3.1 x10*3/uL (2.0-8.3); Neutrophils Percent Auto 62.8 % (45-73); Platelet Count 324 X10*3/uL (160-400); Red Cell Distribution Width 15.4 % (11.0-16.0)
[2023-06-15 10:01] LABS: Prothrombin Time 11.6 SEC (11.1-13.3)
[2023-06-15 10:03] LABS: Partial Thromboplastin Time 27.7 SEC (26.0-36.4)
[2023-06-15 10:04] LABS: Estimated Average Glucose 97 mg/dL
[2023-06-15 10:39] LABS: Alanine Aminotransferase 11 U/L (0-31); Albumin Level 4.1 g/dL (3.5-5.0); Alkaline Phosphatase 64 U/L (39-117); Anion Gap 13 (12-20); Aspartate Amino Transferase 12 U/L (5-31); Bilirubin Total 0.4 mg/dL (0.0-1.0); Blood Urea Nitrogen 12 mg/dL (9-16); Calcium 9.5 mg/dL (8.4-10.2); Carbon Dioxide 27 mmol/L (22-29); Chloride 105 mmol/L (96-108); Cholesterol 207 mg/dL; Estimated Glomerular Filt Rate > 60; Glucose Random 90 mg/dL (60-115); HDL Cholesterol 47 mg/dL; LDL Cholesterol Calculated 140 mg/dl; Potassium 3.8 mmol/L (3.3-5.1); Sodium 141 mmol/L (135-145); Total Protein 7.4 g/dL (6.5-8.0); Triglycerides 104 mg/dL
[2023-06-15 10:56] LABS: Insulin 3 uU/mL (2-29); TSH reflex Free T4 3.69 uIU/mL (0.32-4.0)
[2023-06-20 22:33] LABS: Vitamin A 44 mcg/dL (38-98)
[2023-06-21 14:29] LABS: Vitamin B1 12 nmol/L (8-30)
== END 2023-06-15 08:50 | disposition home or self-care (01) ==
LOC: HO.LAB 08:49
PROVIDERS: PCP Nurse Practitioner Family; Visit Provider Surgery
DX: M19.90 Unspecified osteoarthritis, unspecified site (principal); F41.9 Anxiety disorder, unspecified; F32.A Depression, unspecified; E78.5 Hyperlipidemia, unspecified; E66.01 Morbid (severe) obesity due to excess calories; Z68.36 Body mass index [BMI] 36.0-36.9, adult
CPT/HCPCS: 36415; 80053; 80061; 83036; 83525; 84425; 84443; 84590; 85025; 85610; 85730; 86140

== ENCOUNTER 2023-06-21 06:02 | Day surgery (SDC) | payer OTHER, SELFPAY ==
[2023-06-13 09:24] VITALS: BMI 35.5
--- NOTE | 2023-06-15 22:21 | MHC.SHP ---
Pre-Procedural Eval Section A Date of Service: 06/15/23 The patient is an INPATIENT: No The History & Physical has been completed within 30 days and I have reviewed it.: Yes Section B Chief Complaint: Obesity, unspecified Relevant Family History (Specify if Yes): No Relevant Social History: None Present Medications: None Medical History: No relevant PMH History of Previous Operations: No relevant previous surgery Allergies: Allergies Allergy/AdvReac Type Severity Reaction Status Date / Time promethazine [From Phenergan] Allergy Intermediate Hallucinati Verified 06/13/23 08:56 ons Penicillins Allergy Unknown childhood Verified 06/13/23 09:22 allergy-reaction unknown Review of Systems Sugical H&P ROS: Negative: Constitution, Cardiovascular, Respiratory, Neurological, Psychiatric, Hem-Onc, Allergic/Immunologic, Gastrointestinal, Genitourinary, Musculoskeletal, Integumentary, Endocrine and Eyes/Ears/Nose/Throat Exam Surgical H&P Exam: Normal: HEENT, Normal: Heart, Normal: Lungs, Normal: Extremities, Normal: Abdomen, Normal: Skin and Normal: Neurological Plan Diagnosis/Plan: Unchanged I have reviewed the history and physical and performed a pertinent physical examination on my patient. No changes have occurred unless specified. Time Spent With Patient Time: Total time managing care of this patient today ____ minutes.
--- NOTE | 2023-06-20 09:11 | HO.ANESPROP2 ---
Documented by User: Amelia Lion NP 06/20/23 09:14 HPI - Anesthesia Eval Consult details Narrative: 42yo F for Gastrectomy Sleeve Egd, poss diaphragmatic hernia, poss Ventral hernia,poss open PMFSH Active Problems Active Problems: All Active Problems (Updated 06/13/23 @ 09:23 by Jossy Vergara RN) Hypothyroidism (Acute) Cholelithiasis (Acute) Liver fibrosis (Acute) NAFLD (nonalcoholic fatty liver disease) (Acute) Obesity (Acute) BMI 37.0-37.9, adult (Acute) BMI 35.0-35.9,adult (Acute) BMI 36.0-36.9,adult (Acute) DJD (degenerative joint disease) (Acute) Hyperlipemia (Acute) Anxiety (Acute) Depression (Acute) Morbid obesity (Acute) Past Medical History Medical History Anxiety Depression DJD (degenerative joint disease) Genital herpes Hyperlipemia Hypothyroid Morbid obesity Family History Family History Mother Diabetes Father Lung cancer Brother Heart disease Brother Cancer Brother No problems noted. Brother No problems noted. Sister Chronic pain Fibromyalgia Sister No problems noted. Sister Breast cancer Son No problems noted. Daughter No problems noted. Surgical History Surgical History No history of previous surgery Social History Social History Are you a primary career development coordinator/teacher to a significant other at home: No Do you presently have visiting nurse or other home services: No Alcohol intake: current Alcohol intake frequency: a few times a month Patient Tobacco Use Status: Never used Tobacco Use of substances other than those prescribed or required for medical reasons: No Have you been hit, kicked, punched, or otherwise hurt by someone within the past year? If so, by whom?: No Are you DNR?: No Advance Directives: No ( is primary contact) Advance Directives Information Provided: Yes Advance Directives on File: No Recently lost weight without trying: No Eating poorly because of decreased appetite: No Nutrition Risks: No Nutritional Risk Patient : No FDLMP: 06/12/23 : No Poor oral hygiene: No (wearing Invislign aligners-bilateral upper missing molars) Meds Allergies Allergy/AdvReac Type Severity Reaction Status Date / Time promethazine [From Phenergan] Allergy Intermediate Hallucinati Verified 06/21/23 06:28 ons Penicillins Allergy Unknown childhood Verified 06/21/23 06:28 allergy-reaction unknown Home Medications Medication Instructions Recorded Confirmed Last Taken Type gabapentin 300 mg capsule 300 mg PO TID PRN Anxiety 02/28/23 06/21/23 06/16/23 History hydroxyzine HCl 25 mg tablet 25 mg PO DAILY PRN Anxiety 02/28/23 06/21/23 06/20/23 History paroxetine HCl 37.5 mg 37.5 mg PO DAILY 02/28/23 06/21/23 06/20/23 History tablet,extended release 24 hr valacyclovir 1 gram tablet 1,000 mg PO DAILY PRN herpes 06/13/23 06/21/23 06/20/23 History outbreak Exam Exam Date and Time: June 20, 2023 0911 Height,Weight and Vital Signs: Height 4 ft 11 in Weight 79.832 kg Pertinent Lab Results Pertinent Lab Results: Laboratory Tests 06/15/23 08:55 Blood Type A Positive Antibody Screen NEGATIVE Laboratory Tests 06/15/23 06/15/23 08:55 08:55 WBC 5.0 Hgb 11.5 L Hct 37.8 Plt Count 324 Sodium 141 Potassium 3.8 Chloride 105 Carbon Dioxide 27 BUN 12 Creatinine 0.81 Narrative Narrative: EKG 02/2023 Vent. Rate : 057 BPM ? ? Atrial Rate : 057 BPM ?? P-R Int : 160 ms? QRS Dur : 080 ms ? ? QT Int : 434 ms ? ? ? P-R-T Axes : 033 010 014 degrees ?? QTc Int : 422 ms ? Sinus bradycardia Otherwise normal ECG No previous ECGs available Assessment and Plan Assessment Anesthesia Assessment: Chart Reviewed Documented by User: Inés Saleh MD 06/21/23 07:21 [facility] [place] Past Medical History Medical History Anxiety Depression DJD (degenerative joint disease) Genital herpes Hyperlipemia Hypothyroid Morbid obesity Family History Family History Mother Diabetes Father Lung cancer Brother Heart disease Brother Cancer Brother No problems noted. Brother No problems noted. Sister Chronic pain Fibromyalgia Sister No problems noted. Sister Breast cancer Son No problems noted. Daughter No problems noted. Family history of problems with anesthesia: No Surgical History Surgical History No history of previous surgery History of Problems with Anesthesia: No Social History Social History Are you a primary career development coordinator/teacher to a significant other at home: No Do you presently have visiting nurse or other home services: No Alcohol intake: current Alcohol intake frequency: a few times a month Patient Tobacco Use Status: Never used Tobacco Use of substances other than those prescribed or required for medical reasons: No Have you been hit, kicked, punched, or otherwise hurt by someone within the past year? If so, by whom?: No Are you DNR?: No Advance Directives: No ( is primary contact) Advance Directives Information Provided: Yes Advance Directives on File: No Recently lost weight without trying: No Eating poorly because of decreased appetite: No Nutrition Risks: No Nutritional Risk Patient : No FDLMP: 06/12/23 : No Poor oral hygiene: No (wearing Invislign aligners-bilateral upper missing molars) Meds Allergies Allergy/AdvReac Type Severity Reaction Status Date / Time promethazine [From Phenergan] Allergy Intermediate Hallucinati Verified 06/21/23 06:28 ons Penicillins Allergy Unknown childhood Verified 06/21/23 06:28 allergy-reaction unknown Home Medications Medication Instructions Recorded Confirmed Last Taken Type gabapentin 300 mg capsule 300 mg PO TID PRN Anxiety 02/28/23 06/21/23 06/16/23 History hydroxyzine HCl 25 mg tablet 25 mg PO DAILY PRN Anxiety 02/28/23 06/21/23 06/20/23 History paroxetine HCl 37.5 mg 37.5 mg PO DAILY 02/28/23 06/21/23 06/20/23 History tablet,extended release 24 hr valacyclovir 1 gram tablet 1,000 mg PO DAILY PRN herpes 06/13/23 06/21/23 06/20/23 History outbreak Exam Airway Mallampati Class: II TM Dist: >3cm Neck ROM: Full Heart: rrr Lungs: cta Assessment and Plan Assessment Anesthesia Assessment: Anesthesia Plan Discussed Final Anesthetic Review Family History of Problems with Anesthesia: No History of Problems with Anesthesia: No NPO: Yes ASA Class: III Final Preanesthetic Review: No Changes in Pt Med Stat, Meds/Allgs Chart Reviewed, Consent Obtained/Reviewed and Anes Risks/Benef Reviewed Patient Risk: Intermediate Procedure Risk: Intermediate Anesthetic Plan Anesthetic Plan: GA
[2023-06-21] VITALS (16 sets, daily range): BP systolic 115–139; BP diastolic 56–74; PULSE 56–84; RESP 14–20; TEMP 36–36.6; O2SAT 95–99
[2023-06-21 06:41] LABS: UPreg QC Valid YES; Urine Pregnancy NEGATIVE (NEGATIVE)
[2023-06-21] MEDS: Lactated Ringers 1,000 ML 100 ML IVCONT ×2 (07:04→22:06)
[2023-06-21] MEDS: Aprepitant 32 MG/4.4 ML VIAL IVPUSH (07:04)
[2023-06-21] MEDS: Lactated Ringers 1,000 ML 999 ML IV (07:05)
--- NOTE | 2023-06-21 07:44 | PM.OP ---
Brief Operative Note Date of Service: 06/21/23 Pre-op diagnosis: Severe obesity with comorbidities (see below) Post-op diagnosis: same Procedure: INITIAL PATIENT BMI ON PRESENTATION AT OUR OFFICE: 40,1 kg/m2 LAST BMI BEFORE SURGERY: 36.1 kg/m2 COMORBIDITIES: hypothyroidism, depression, anxiety, DJD, hyperlipidemia, liver steatosis, liver fibrosis ?The patient presented to the Weight Management Program with significant obesity that was negatively impacting the patient's comorbidities as listed above.? The program is a phased program with a special focus on preoperative medical weight management to promote substantial weight loss and prepare the patients for the second phase of the program: bariatric surgery. The patient participated in an intensive weekly lifestyle ?intervention and exercise program during which the patient ?has lost between the initial office visit and the last preoperative visit 21.8 lbs, or 12% of initial actual body weight. It was deemed appropriate for the patient to now have bariatric surgery. In light of the current Covid-19 pandemic and the well documented strong association of obesity and increased risk of worse outcomes if infected with Covid-19 (REFERENCES:https://pubmed.ncbi.nlm.nih.gov/20562700/,?https://pubmed.ncbi.nlm.nih.gov/15502501/), any delay in undergoing bariatric surgery may lead to the patient's worsening health condition and increased?risk of more severe Covid-19 disease if infected. In addition a recent?study from [facility] published in [facility] [facility] on 10/24/2021 ([email or web address]) found that, among patients with obesity, substantial weight loss achieved with surgery was associated with improved outcomes of COVID-19 infection. The findings suggest that obesity can be a modifiable risk factor for the severity of COVID-19 infection. In addition, the patient met the BMI-criteria for bariatric surgery based on the BMI on initial presentation. The patient should not be penalized for achieving such weight loss because ?it is not sustainable long-term without surgical intervention and it was achieved in preparation for bariatric surgery ?under my direction and based on my published research ([email or web address] and?https://www.soard.org/article/[email or web address](88)30402-X/pdf) ?that a 10% preoperative weight loss improves long-term weight loss after surgery and reduces perioperative complications.? Insurance carriers such as [facility] have endorsed my recommendations ?and have included in their policies criteria to include a 10% preoperative weight loss requirement. PROCEDURE: Esophago-gastroscopy, laparoscopic sleeve gastrectomy and laparoscopic gastropexy INDICATIONS: This is a 42 year-old female who was electively scheduled for laparoscopic, possibly open sleeve gastrectomy. The risks and complications of the procedure were discussed with the patient in advance, particularly the possibility of ; pulmonary embolism; staple line leak; bleeding; GERD; cardiac, pulmonary, or renal complications; as well as long-term problems such as insufficient weight loss, vitamin deficiency, strictures, or ulcers. The patient understood all the risks, and was in agreement to proceed with surgery. DESCRIPTION OF PROCEDURE: After informed consent was obtained from the patient, the patient was given preoperative antibiotics, and was transferred to the operating room. After successful induction of general anesthesia, pneumatic compression devices were placed on both lower extremities. An upper endoscopy was performed next. The oropharynx and esophagus appeared to be within normal limits. There was no diaphragmatic hernia present consistent with the findings of the preoperative upper GI. The stomach was entered. Then after all fluid and air were suctioned and the stomach was fully decompressed, the scope was withdrawn and secured in the mid esophagus. The patient was then prepped and draped in the usual sterile manner, and abdominal access was established at the right upper quadrant with the Tiny technique. A 12 mm blunt port was inserted, and the abdomen was insufflated with CO2 to a pressure of 15 mmHg. Under direct visualization, additional ports were placed, specifically two 5 mm Versi-step ports to the left upper quadrant, and a 5 mm Versi-Step port to the right upper quadrant. 1% lidocaine plain was used to infiltrate all port sites as well as all fascia defects. Following that, the patient was placed in a steep reverse Trendelenburg position. An additional 5 mm port was placed to the right flank for the Mediflex retractor that was used to retract the left lobe of the liver. The gastro-esophageal fat pad was opened with the ultrasonic device (Thunderbeat, Olympus) and the anterior esophagus and hiatus were exposed. The angle of His was opened with the ultrasonic device the fundus of the stomach from any diaphragmatic and splenic attachments. I then opened the gastrocolic ligament between the transverse colon and the greater curvature of the stomach with the ultrasonic device to enter the lesser sac and facilitate the ligation of the short gastric vessels. I started at a mid-point along the greater curvature and using the Thunderbeat, all short gastric vessels were divided all the way to the angle of His until the left quincy was completely dissected at its entirety. I then divided the gastro-colic ligament distally to a distance of about 3-4 cm proximal to the pylorus. The stomach was then divided transversely with two Endo RIVERA-45 purple and three RIVERA-60 articulating purple loads using the Commutable stapler and loads. Every effort was made that the gastric sleeve had a tubular shape and an even caliber throughout. Once the sleeve resection was completed, the staple line of the gastric sleeve was reinforced with Hemoclips. The resected stomach was retrieved without difficulty from the Tiny port. A gastropexy was then performed in order to prevent postoperative GERD and partial gastric volvulus. Several interrupted 2.0 Surgidac sutures were placed between the sleeve's staple line and the previously divided greater omentum and gastro-colic ligament using the Endo-Stitch device. ?An upper endoscopy was performed. There was no narrowing at the GE junction. The scope was easily advanced all the way to the pylorus which was clearly visualized. There was no narrowing anywhere and the sleeve's caliber was even throughout. The sleeve's staple line was inspected and there was no evidence of ischemia, bleeding or dehiscence. At that point the gastroscope was withdrawn from the patient?s mouth while we were decompressing the bowel and the stomach from any remaining air. I looked into the lesser sac to see how the sleeve was situating and it was situating well. There was no bleeding from the staple line, spleen, or short gastric vessels. The Mediflex retractor was removed, and the undersurface of the liver was inspected and there was no bleeding. The patient was placed in supine position. I closed the fascial defect of the 12 mm port site with a figure of eight #1 Polysorb suture. Then 30cc Ropivacaine plain with 10 mg of Dexamethasone were used to infiltrate the fascial closure as well as all skin incisions. At this point, the abdomen was deflated, all ports were removed under direct vision, and no bleeding was noted from any of the port sites. The skin incisions were irrigated with saline and were closed with 4-0 absorbable monofilament sutures. Steri-Strips and OpSites were used to cover all incisions. The patient was extubated and was transferred in stable condition to the recovery room for further care. I was present and performed all fitzgerald parts of the procedure. Mr. Barton was the life enrichment assistant. There were no residents to assist with this case. Bryson Jennings MD, PhD, FACS Surgeon: Mark Jennings MD Anesthesia: GETA, local and other (TAP block) Was an Securities Sales Associate used for this Procedure?: No Securities Sales Associate: Yeison Barton Estimated blood loss (mL): 10 IV fluids (mL): 2,500 Urine output (mL): 0 (No Zambrano to record output) Pathology: other (Stomach) Condition: stable Disposition: PACU
--- NOTE | 2023-06-21 07:47 | P.PNGS_ITS ---
Subjective Subjective Date of Service: 06/22/23 Interval history: Feels well. Mild incisional pain. She is tolerating phase 1 bariatric diet Physical Exam Vital Signs: Vital Signs: Last Vital Signs Temp 97.1 F 06/21/23 06:43 Pulse 56 06/21/23 06:43 Resp 16 06/21/23 06:43 BP 139/69 06/21/23 06:43 Pulse Ox 98 06/21/23 06:43 O2 Del Method Room Air 06/21/23 06:43 BMI result Body Mass Index 35.5 GI: Inspection: Yes normal to inspection, Yes incision (clean, dry and intact) and Yes obesity Palpation (GI): Soft to palpation Extrem: Right lower extremity: normal to inspection (no calf tenderness) Left lower extremity: normal to inspection (no calf tenderness) Objective Data Active Medications Fentanyl (Fentanyl Citrate/Pf 100 Mcg/2 Ml Vial) 25 mcg IVPUSH Q5M PRN; Protocol PRN Reason: Pain, Moderate(Pain Scale 4-6) Lactated Ringer's (Lr) 1,000 mls @ 100 mls/hr IVCONT .Q10H [facility] Last Admin: 06/21/23 07:04 Dose: 100 mls/hr Documented By: PORFIRIO Lactated Ringer's (Lr) 1,000 mls @ 999 mls/hr IV .Q1H1M [facility] Stop: 06/21/23 08:15 Last Admin: 06/21/23 07:05 Dose: 999 mls/hr Documented By: PORFIRIO Ondansetron HCl (Ondansetron Hcl 4 Mg/2 Ml Vial) 4 mg IVPUSH ONCE PRN PRN Reason: Nausea and Vomiting Oxycodone HCl (Oxycodone Hcl Immed Release 5 Mg Tablet) 5 mg PO ONCE PRN PRN Reason: Pain, Severe (Pain Scale 7-10) Labs 06/21/23 10:40 06/21/23 10:25 Labs: Laboratory Results - last 24 hr 06/21/23 06:27 Urine Test NEGATIVE Procedures Date of Service Date of Service: 06/22/23 Progress Note: A&P Assessment and plan (1) Obesity: Status: Acute Assessment and Plan: s/p laparoscopic sleeve gastrectomy and gastropexy Doing well Will check am labs and if OK the patient will be discharged home (2) Anxiety: Status: Acute (3) Depression: Status: Acute (4) DJD (degenerative joint disease): Status: Acute (5) Hyperlipemia: Status: Acute (6) NAFLD (nonalcoholic fatty liver disease): Status: Acute (7) Hypothyroidism: Status: Acute (8) S/P laparoscopic sleeve gastrectomy: Status: Acute Time Spent With Patient Time: Total time managing care of this patient today ____ minutes. Quality Stroke Does the patient have a stroke diagnosis?: No VTE Prior VTE?: No VTE Risk Level:: Surgical - moderate VTE Device Contraindication: N/A - Device Ordered VTE Drug Contraindication: Treatment Not Indicated
--- NOTE | 2023-06-21 09:58 | P.DS_ITS ---
DS: Providers Provider Date of Service: 06/22/23 Primary care physician: Sheri Stone NP DS: Diagnosis Discharge Diagnosis (1) Obesity: Status: Acute (2) Anxiety: Status: Acute (3) Depression: Status: Acute (4) DJD (degenerative joint disease): Status: Acute (5) Hyperlipemia: Status: Acute (6) NAFLD (nonalcoholic fatty liver disease): Status: Acute (7) Hypothyroidism: Status: Acute DS: Summary Hospital Course Hospital Course: ADMITTING DIAGNOSIS: obesity, anxiety, depression, HLD, Hypothyroid ? DISCHARGE DIAGNOSIS: same, s/p laparoscopic sleeve gastrectomy ? PAST SURGICAL HISTORY: none ? PROCEDURE: upper endoscopy, laparoscopic sleeve gastrectomy ? DISCHARGE SUMMARY: ? History of Present Illness: ? The patient is a?42 year-old woman with a BMI of?40 kg/m2 and associated co- morbidities as described above. The patient had extensive work-up,lost?22.9 lbs preoperatively and was electively scheduled for laparoscopic, possible open sleeve gastrectomy and gastropexy. Risks and complications of the surgery were discussed with the patient in advance, particularly the possibility of , pulmonary embolism, anastomotic leak, bleeding, bowel injury, GERD, cardiac, renal or pulmonary complications. The patient understood all the risks and was in agreement with the surgical plan. ? Hospital Course: ? The patient underwent an uneventful laparoscopic sleeve gastrectomy with gastropexy on the day of admission. Postoperatively, the patient was transferred to the surgical floor. The patient received IV Acetaminophen and IV dilaudid for pain control. Patient was started on bariatric phase 1 diet POD #0. On postoperative day one, the patient was feeling well without nausea, vomiting, fevers, or tachycardia. The patient had some mild incisional pain and the abdomen was soft. ? On the morning of postoperative day one, the patient was continued on 1 ounce of water or ice every half hour. During the day, the patient did fairly well, having some incisional pain, but able to ambulate adequately and to tolerate liquids well. ? Since the patient is doing well, we decided that the patient was ready to be discharged. The patient was given instructions to follow-up with me next week and to call my office for any fever over 101, persistent abdominal pain, nausea, vomiting, GERD, symptoms of DVT such as calf tenderness, or leg swelling, or pulmonary embolism such as chest pain or shortness of breath. The patient was also instructed to drink 40-60 ounces of liquids per day using the 1-ounce cups. The patient had been given prescriptions for Tylenol for pain, Zofran prn for nausea, and pantoprazole and carafate previously. The patient was encouraged to ambulate and use the incentive spirometer. The patient was allowed to shower, but no baths, and encouraged to stay active at home. All of these instructions were given to the patient personally. All questions were answered and the patient understood all instructions, the instructions were also given to the patient in print. Time Spent with Patient Time attestation: Total time managing care of this patient today ____ minutes. Discharge coordination time: Less than 30 minutes Quality: Safe Use of Opioids Does Pt have an Active Cancer Diagnosis on the Problem List?: No Quality: Stroke Does the patient have a stroke diagnosis?: No Physical Exam Vital Signs: Vital Signs: Last Vital Signs Temp 97.1 F 06/21/23 06:43 Pulse 56 06/21/23 06:43 Resp 16 06/21/23 06:43 BP 139/69 06/21/23 06:43 Pulse Ox 98 06/21/23 06:43 O2 Del Method Room Air 06/21/23 06:43 BMI result Body Mass Index 35.5 DS: Data Data Completed and Pending Pending studies at discharge: Pending at discharge 06/21/23 08:59 Surgical [PTH] Routine Labs on day of discharge: Laboratory Results - last 24 hr 06/21/23 06:27 Urine Test NEGATIVE Discharge Plan Discharge Patient Disposition: Home, Self-Care Referrals: Sheri Stone NP [Primary Care Provider] - 1 Week Discharge Medications: Continued valacyclovir 1 gram tablet 1,000 mg PO DAILY PRN (Reason: herpes outbreak) levothyroxine 25 mcg tablet 25 mcg PO DAILY Qty: 30 2RF paroxetine HCl 37.5 mg tablet extended release 24 hr 37.5 mg PO DAILY gabapentin 300 mg capsule 300 mg PO TID PRN (Reason: Anxiety) hydroxyzine HCl 25 mg tablet 25 mg PO DAILY PRN (Reason: Anxiety) pantoprazole 40 mg tablet,delayed release (DR/EC) 40 mg PO DAILY Qty: 30 2RF sucralfate 100 mg/mL suspension 10 ml PO BID Qty: 400 2RF No Action ondansetron 4 mg tablet,disintegrating 4 mg PO Q12H PRN (Reason: nausea/vomiting) Discharge Orders: Discharge Order (Routine); Ordered 06/22/23 Ordered By: Mark Jennings Activity on Discharge: No heavy lifting Activity Restrictions/Additional Instructions: No tub baths, sex or returning to work until discussed at first post op appointment. No exercise, alcohol, tobacco or illegal drug use. Continue to use incentive spirometer hourly while awake. Walk in home for 5- 10 minutes every 2 hours during the first week. Follow all instructions in the bariatric handbook and call with any questions.Discharge Instructions 1. Please call your doctor or come back to the emergency room should any new symptoms arise. 2. You will receive a courtesy call from [facility] 24-48 hours after discharge. 3. Activity: abstain from alcohol, practice limited stair climbing, no bending, no driving, no exercise, no illicit substances, no lifting, no sex, no tub bath, no work. 4. Diet: continue as discussed with Dr. Jennings. 5. Dressing Change/Wound Care: Your incision is covered by clear bandages and guaze underneath. If the area is tender, you may apply an ice pack for short intervals (no more than 20 minutes on, followed by at least 20 minutes off). Do not apply heat. Do not use creams, lotions, or topical antibiotics unless instructed to do so by your surgeon. These can cause infection or allergic reaction. 6. Call your doctor if: - Your temperature exceeds 101.5 F - You experience excessive pain or swelling - You have an unexpected reaction to medication - You have excessive bleeding - You experience continued vomiting/nausea - Your incision begins to separate - Your incision shows signs of infection such as increased redness, swelling, excessive pain, heat, or drainage (light blood or clear fluid is normal) 7. General instructions: No lifting greater than 5 lbs for the next 4 weeks[address] driving within 24 hours of taking narcotic pain medications. If you do not move your bowels in the next 2 days, please take milk of magnesia over the counter. Please follow the post op diet and do not advance your diet until you are seen in the office in about 2 weeks. Please walk around your home every hour or two to prevent blood clots from forming in your legs. You do not need to wake from sleeping to walk. Please sleep in a bed or couch to prevent kinking at the hips and knees. Please take your incentive spirometer (your lung manager garage) home with you and use it for the next few days to prevent pneumonias. You may shower, no hot tubs, baths or swimming pools. Please call the office with any questions or concerns such as increasing abdominal pain, fever, chills, shortness of breath, chest pain, leg pain or swelling, or redness or drainage from your incisions. Please stay on stage 3 diet which includes sugar free clear liquids such as ice pops and jello and broth and crystal light. Avoid all carbonation. Please drink 3 protein shakes with at least 25-30 grams of protein daily or 3 of the Celebrate 4:1 shakes which can be purchased in our office. The Celebrate shakes have all of the bariatric vitamins you need if you consume these shakes. If you are drinking other protein shakes, you will need to purchase the Celebrate multivitamins and calcium that we provide in the office (they will provide all the vitamins you need). Please make sure you are consuming at least 40-60 ounces of water in addition to your 3 protein shakes daily. Do not hesitate to contact the office with any questions at . The patient's medical history has been reviewed and they are considered low risk for post op DVT and therefore DVT prophylaxis is not considered necessary. Travel after surgery was reviewed. The patient has not disclosed any travel plans during the first 30 days after surgery and they have been advised that within the first 30 days after surgery any bus, plane, train or car travel over 2 hours in duration is contraindicated due to the possibility of developing blood clots from immobility. Any travel, needs to include periods of ambulation of 10 minutes in duration every 2 hours.? The patient was instructed to discuss any plans for travel during this period with their bariatric surgeon. Discharge Date/Time: 06/22/23 12:30
--- NOTE | 2023-06-21 10:06 | PHA.MEDREC ---
Pharmacy Consult ? Medication Reconciliation Pharmacy has completed the medication reconciliation. Reviewed med rec done by nursing (Anny).
[2023-06-21] MEDS: ondansetron HCL 4 MG/2 ML VIAL IVPUSH (10:18)
[2023-06-21 10:52] LABS: Hematocrit 35.1 % (37.0-47.0); Hemoglobin 10.6 g/dl (12.0-16.0)
[2023-06-21 11:02] LABS: Anion Gap 11 (12-20); Blood Urea Nitrogen 9 mg/dL (9-16); Calcium 9.1 mg/dL (8.4-10.2); Carbon Dioxide 24 mmol/L (22-29); Chloride 108 mmol/L (96-108); Estimated Glomerular Filt Rate > 60; Glucose Random 145 mg/dL (60-115); Potassium 3.7 mmol/L (3.3-5.1); Sodium 139 mmol/L (135-145)
[2023-06-21] MEDS: Metoclopramide HCl 10 MG/2 ML VIAL IVPUSH (16:12)
[2023-06-21] MEDS: Acetaminophen 1,000 MG/100 ML PIGGYBACK 400 MG IV (19:21)
[2023-06-21] MEDS: 0.9 % Sodium Chloride Flush 3 ML SYRINGE IVFLUSH (19:21)
[2023-06-21] MEDS: Famotidine/PF 20 MG/2 ML VIAL IVPUSH (19:21)
[2023-06-22] MEDS: Acetaminophen 1,000 MG/100 ML PIGGYBACK 400 MG IV ×2 (01:53→08:22)
[2023-06-22 01:59] VITALS: BP 121/63; PULSE 55; RESP 18; TEMP 36.2; O2SAT 97
[2023-06-22 05:39] LABS: MANUAL DIFF FLAG NO
[2023-06-22 05:43] LABS: Basophils Percent Auto 0.1 % (0-2); Hematocrit 32.2 % (37.0-47.0); Hemoglobin 9.8 g/dl (12.0-16.0); Imm Gran Abs Auto 0.03 X10*3/uL (0.00-0.03); Imm Gran Pct Auto 0.4 % (0.0-0.4); Lymphocytes Percent Auto 13.1 % (20-40); Mean Corpuscular HGB Conc 30.4 g/dl (31.0-35.0); Mean Corpuscular Hemoglobin 24.5 pg (27.0-33.0); Mean Corpuscular Volume 80.5 fL (80.0-98.0); Mean Platelet Volume 10.8 fL (9.4-12.3); Monocytes Absolute Auto 0.5 X10*3/uL (0.1-1.2); Monocytes Percent Auto 6.9 % (2-11); Neutrophils Percent Auto 79.5 % (45-73); Platelet Count 283 X10*3/uL (160-400); Red Cell Distribution Width 15.2 % (11.0-16.0); White Blood Count 7.5 X10*3/uL (4.8-10.8)
[2023-06-22] MEDS: Levothyroxine Sodium 25 MCG TABLET PO (05:58)
[2023-06-22 06:07] LABS: Anion Gap 13 (12-20); Blood Urea Nitrogen 8 mg/dL (9-16); Calcium 8.8 mg/dL (8.4-10.2); Carbon Dioxide 24 mmol/L (22-29); Chloride 105 mmol/L (96-108); Estimated Glomerular Filt Rate > 60; Glucose Random 95 mg/dL (60-115); Sodium 138 mmol/L (135-145)
[2023-06-22 07:17] VITALS: BP 123/62; PULSE 53; RESP 17; TEMP 36.7; O2SAT 98
[2023-06-22] MEDS: Lactated Ringers 1,000 ML 100 ML IVCONT (07:39)
[2023-06-22] MEDS: Famotidine/PF 20 MG/2 ML VIAL IVPUSH (08:22)
--- NOTE | 2023-06-22 08:49 | MHC.CM.PN ---
CM MET WITH PT AT BEDSIDE. PT LIVES [facility]. INDEPENDENT AND EMPLOYED F/T. PT WILL CONSIDER DOING A HCP WHILE HERE. COVID VAX X3 PCP GIRMA BELL DP: PT HAS BEEN MEDICALLY CLEARED FOR DC HOME, NO SERVICES. SPOUSE WILL TRANSPORT HOME.
--- NOTE | 2023-06-22 12:12 | HO.POSTANES ---
Post Anesthesia Evaluation Post Anesthesia Evaluation Date of Service: 06/22/23 Vital Signs: Vital Signs Temp Pulse Resp BP Pulse Ox O2 Del Method 06/22/23 07:17 98.0 F 53 17 123/62 98 Room Air 06/22/23 01:59 97.1 F 55 18 121/63 97 Room Air Anesthesia: General Endotracheal-GETA Mental Status: Awake Pain Control: Satisfactory Nausea/Vomiting: None Hydration: Adequate Anesthesia-Related Issues: No Anes. Related Issues
== END 2023-06-22 12:30 | disposition home or self-care (01) ==
LOC: HO.SSS 10:00 → HO.S3 10:25
PROVIDERS: Nurse Practitioner; Physician Assistant Surgical; PCP Nurse Practitioner Family; Visit Provider Surgery
PROC: (CPT 43845; principal; 2023-06-21 07:30)
DX: E66.01 Morbid (severe) obesity due to excess calories (principal); Z68.36 Body mass index [BMI] 36.0-36.9, adult; K21.9 Gastro-esophageal reflux disease without esophagitis; F41.1 Generalized anxiety disorder; F32.A Depression, unspecified; E78.5 Hyperlipidemia, unspecified; M19.90 Unspecified osteoarthritis, unspecified site; K76.0 Fatty (change of) liver, not elsewhere classified; E03.9 Hypothyroidism, unspecified; Z79.899 Other long term (current) drug therapy; Z88.0 Allergy status to penicillin; Z88.8 Allergy status to other drugs, medicaments and biological substances
CPT/HCPCS: 43775; 43659; 36415; 80048; 81025; 85014; 85018; 85025; 86850; 86900; 86901; 88304; 88305; 88307; 88342; A4649; C9088; C9145; J0131; J1100; J1170; J1956; J2250; J2371; J2405; J2765; J2795; J3010

== ENCOUNTER → 2023-06-21 06:02 | Outpatient (BNV) | payer OTHER, SELFPAY | PROVIDERS: PCP Nurse Practitioner Family; Visit Provider Surgery | DX: E66.01 Morbid (severe) obesity due to excess calories (principal); Z68.36 Body mass index [BMI] 36.0-36.9, adult | CPT/HCPCS: 43659; 43775; 99024 ==

== ENCOUNTER 2023-06-26 12:59 | Outpatient (AMB) | payer OTHER, SELFPAY ==
--- NOTE | 2023-06-26 13:29 | A.OFFVIS_ITS ---
Intake VS Expanded 06/26/23 13:38 Height 4 ft 11 in Weight 167 lb 3.2 oz BMI 33.8 BP 112/60 Blood Pressure Location Lt brachial Blood Pressure Position Sitting Pulse 66 Pulse Source Pulse Oximeter Temp 98.0 F Temperature Source Tympanic Pulse Oximetry 98 Oxygen Delivery Method Room Air Body Fat 69.8 Body Fat Percentage 41.8 Free Fat Mass 97.2 Muscle Mass 92.4 Visceral Mass 10.0 Water Mass 69.4 BMR 1,368 Intake Visit Reasons: (OV) 5 Days PO LSG 06/21/23 Allergies promethazine [From Phenergan] Allergy (Intermediate, Verified 06/26/23 13:33) Hallucinations Penicillins Allergy (Unknown, Verified 06/26/23 13:33) childhood allergy-reaction unknown HPI HPI Comments History of Present Illness Details 42 yo female pod 5 s/p LSG on 06/21/[address] Jennings Homero 3 celebrate 4 in 1 w 1 scoop each and 12 oz additional water pos BM no sig pain PFSH Medical History Anxiety Depression DJD (degenerative joint disease) Genital herpes Hyperlipemia Hypothyroid Morbid obesity Surgical History No history of previous surgery Family History Mother Diabetes Father Lung cancer Brother Heart disease Brother Cancer Brother No problems noted. Brother No problems noted. Sister Chronic pain Fibromyalgia Sister No problems noted. Sister Breast cancer Son No problems noted. Daughter No problems noted. Social History Household Members: Spouse Housing: House Are you a primary family day care provider to a significant other at home: No Do you presently have visiting nurse or other home services: No Alcohol intake: current Alcohol intake frequency: a few times a month Patient Tobacco Use Status: Never used Tobacco service: No Physical Exam GI Other: mild bruising, c/d/i Assessment & Plan Assessment & Plan (1) S/P laparoscopic sleeve gastrectomy: Code(s): Z98.84 - Bariatric surgery status Plan: POD 5 s/p LSG on 06/21/[address] Jennings Weight loss prior to surgery was 22.9 pounds or 11.5% TBWL. Original weight on 03/05/23 was 198.4 pounds and op weight was 175.5 pounds. Be sure to text Dr Jennings exactly 1 week after surgery your weight from your home scale so he can adjust your meal plan. Continue meal plan until f/u w Barton in 2 weeks May shower, no submersion in bath for another week Continue abdominal binder with activity and exercise for the next 2 weeks. Exercise prior to surgery was Treadmill, may resume slowly on No abdominal exercises for 6 weeks post operatively Will be emailed link to post op video for review Reminded of the pace of drinking, 2 mL per minute, 1 oz/15 min. Coding Level of Care Code Global (89756) Diagnoses S/P laparoscopic sleeve gastrectomy Z98.84
[2023-06-26 13:38] VITALS: BP 112/60; PULSE 66; TEMP 36.7; O2SAT 98; BMI 33.8
== END 2023-06-26 14:00 | disposition home or self-care (01) ==
PROVIDERS: PCP Nurse Practitioner Family; Visit Provider Physician Assistant Surgical
DX: Z98.84 Bariatric surgery status (principal)
CPT/HCPCS: 99024

== ENCOUNTER → 2023-06-26 12:59 | Outpatient (BNVA) | payer OTHER, SELFPAY | PROVIDERS: PCP Nurse Practitioner Family; Visit Provider Physician Assistant Surgical ==

== ENCOUNTER 2023-07-18 11:50 | Outpatient (AMB) | payer OTHER, SELFPAY ==
--- NOTE | 2023-07-18 12:00 | A.OFFVIS_ITS ---
Intake VS Expanded 07/18/23 12:05 Height 4 ft 11 in Weight 159 lb 12.8 oz BMI 32.3 BP 117/59 L Blood Pressure Location Rt brachial Blood Pressure Position Sitting Pulse 53 Pulse Source Pulse Oximeter Temp 97.1 F Temperature Source Temporal Artery Scan Pulse Oximetry 98 Oxygen Delivery Method Room Air Body Fat 62.6 Body Fat Percentage 39.2 Free Fat Mass 97.0 Muscle Mass 92.2 Visceral Mass 9.0 Water Mass 69.0 BMR 1,347 Intake Visit Reasons: (OV) 26 Days PO LSG 06/21/23 Technical Services Specialist Required: No Allergies promethazine [From Phenergan] Allergy (Intermediate, Verified 06/26/23 13:33) Hallucinations Penicillins Allergy (Unknown, Verified 06/26/23 13:33) childhood allergy-reaction unknown Medication List - Last Reconciled 07/18/23 by LAUREL Oscar gabapentin 300 mg PO TID PRN hydroxyzine HCl 25 mg PO DAILY PRN levothyroxine 25 mcg PO DAILY pantoprazole 40 mg PO DAILY paroxetine HCl ER 37.5 mg PO DAILY sucralfate 10 mL PO BID valacyclovir 1,000 mg PO DAILY PRN HPI HPI Comments History of Present Illness Details This?a?42?yo female who is s/p LSG without hiatal hernia repair on?06/21/23. Presents for 1 month post op visit. Weight today is 159.8 pounds, with a BMI of 32.3. There has been a 38.6 pound weight loss,(initial weight 198.4 pounds) since starting the program on 03/05/23 reflecting a 19.4% total body weight loss and a weight loss of 15.7 pounds since surgery (operative weight 175.5 pounds) reflecting a 8.9% TBWL since surgery. No complaints of nausea, emesis, abdominal pain or reflux. Reports infrequent but normal bowel movements every 3- 4 days and uses stool softeners regularly. Overall doing ok w meal plan although feels as though difficult to get in more fluids. No difficulty w 2 scoop shake and will change to 2 scoop shakes to allow more time for water intake. Present meal plan includes: 3 celebrate shakes, 1 scoop, 1 scoop, 2 scoops. 8-10, 11-1, 2-4 ZP bar 5-8 pm Drinkning 16 oz water ? Exercise routine includes: treadmill, 4-5 days per week, 400-500 calories per session PFSH Medical History Genital herpes Hypothyroid BMI 36.0-36.9,adult BMI 37.0-37.9, adult Cholelithiasis DJD (degenerative joint disease) Hyperlipemia Anxiety Depression Morbid obesity Surgical History No history of previous surgery Family History Mother Diabetes Father Lung cancer Brother Heart disease Brother Cancer Brother No problems noted. Brother No problems noted. Sister Chronic pain Fibromyalgia Sister No problems noted. Sister Breast cancer Son No problems noted. Daughter No problems noted. Social History Household Members: Spouse Housing: House Are you a primary associate director career services to a significant other at home: No Do you presently have visiting nurse or other home services: No Alcohol intake: current Alcohol intake frequency: a few times a month Patient Tobacco Use Status: Never used Tobacco service: No Physical Exam GI Inspection: Yes incision (c/d/i) Assessment & Plan Assessment & Plan (1) Obesity: Code(s): E66.9 - Obesity, unspecified Plan: overall making good progress. Will change to 2 shakes 2 scoops each to allow more time for water. Continue bar RTC 3-[address] for further meal adjustment Add senna 2 hs prn She will trxt if wants to change meal plan sooner Medications: New sennosides (Senna Lax) 17.2 mg (2 x 8.6 mg) PO BEDTIME PRN 90 tabs 0RF constipation Coding Level of Care Code Global (04127) Diagnoses Obesity E66.9
[2023-07-18 12:05] VITALS: BP 117/59; PULSE 53; TEMP 36.2; O2SAT 98; BMI 32.3
== END 2023-07-18 12:37 | disposition home or self-care (01) ==
PROVIDERS: PCP Nurse Practitioner Family; Visit Provider Physician Assistant Surgical
DX: E66.9 Obesity, unspecified (principal); Z68.32 Body mass index [BMI] 32.0-32.9, adult; Z90.3 Acquired absence of stomach [part of]; Z98.84 Bariatric surgery status
CPT/HCPCS: 99024

== ENCOUNTER → 2023-07-18 11:50 | Outpatient (BNVA) | payer OTHER, SELFPAY | PROVIDERS: PCP Nurse Practitioner Family; Visit Provider Physician Assistant Surgical ==

== ENCOUNTER → 2023-08-15 08:40 | Outpatient (BNVA) | payer OTHER, SELFPAY | PROVIDERS: PCP Nurse Practitioner Family; Visit Provider Dietitian, Registered | DX: E66.9 Obesity, unspecified (principal); Z98.84 Bariatric surgery status; Z71.3 Dietary counseling and surveillance | CPT/HCPCS: 97803 ==

== ENCOUNTER → 2023-09-11 09:11 | Outpatient (BNVA) | payer OTHER, SELFPAY | PROVIDERS: PCP Nurse Practitioner Family; Visit Provider Dietitian, Registered | DX: E66.01 Morbid (severe) obesity due to excess calories (principal); Z68.29 Body mass index [BMI] 29.0-29.9, adult; Z90.3 Acquired absence of stomach [part of]; Z71.3 Dietary counseling and surveillance | CPT/HCPCS: 97803 ==

== ENCOUNTER 2023-10-24 09:12 | Outpatient (AMB) | payer OTHER, SELFPAY ==
--- NOTE | 2023-10-24 09:03 | A.OFFVIS_ITS ---
Intake VS Expanded 10/24/23 09:17 Height 4 ft 11 in Weight 142 lb BMI 28.7 Intake Visit Reasons: VIDEO PO LSG 06/21/23 Subway Repair Supervisor Required: No Allergies promethazine [From Phenergan] Allergy (Intermediate, Verified 06/26/23 13:33) Hallucinations Penicillins Allergy (Unknown, Verified 06/26/23 13:33) childhood allergy-reaction unknown HPI Nutrition Presentation Details LSG DOS 06/21/23 preop weight 176# - BMI 35.5 weight at 3 wks post op 159# weight at 2 MO PO 153.6 weight at 3MO PO 147# current weight at 4MO PO 142# pt shares her goal is 110# -- recommended coming into office for tanita to monitor body comp Diet Assmnt Details 2 shakes each with 2 scoop 4in1 and 8oz fairlife meal: 2oz ground turkey and carrot 1-2oz Hydration: 40oz which includes her shakes. last appt we talked about trying to get her hydration to goal of 60oz but she forgets Last appt she reports tired and fatigued but this is bettter now Exercise: treadmill incline 4-5x per week varies her goal is 2,000 calories per week 500-600kcal cardio plus some strength tr aining Vitamins: in shakes Dietary counseling reduction Diagnosis Nutrition problem #1 overweight/obesity As related to (etiology) #1 excess energy intake and physical inactivity As evidenced by (sign/symptom) #1 high BMI Learning/Education Readiness to learn fair Stages of change action Most Recent Diabetes Results: Cholesterol 207 mg/dL 06/15/23 HDL Cholesterol 47 mg/dL 06/15/23 Triglycerides 104 mg/dL 06/15/23 Creatinine 0.69 mg/dL (0.5-1.4) 06/22/23 Blood Urea Nitrogen 8 mg/dL (9-16) L 06/22/23 Sodium 138 mmol/L (135-145) 06/22/23 Potassium 4.0 mmol/L (3.3-5.1) 06/22/23 Chloride 105 mmol/L (96-108) 06/22/23 Carbon Dioxide 24 mmol/L (22-29) 06/22/23 Calcium 8.8 mg/dL (8.4-10.2) 06/22/23 AST 12 U/L (5-31) 06/15/23 ALT 11 U/L (0-31) 06/15/23 Total Protein 7.4 g/dL (6.5-8.0) 06/15/23 Albumin 4.1 g/dL (3.5-5.0) 06/15/23 [facility] Medical History Genital herpes Hypothyroid BMI 36.0-36.9,adult BMI 37.0-37.9, adult Cholelithiasis DJD (degenerative joint disease) Hyperlipemia Anxiety Depression Morbid obesity Surgical History No history of previous surgery Family History Mother Diabetes Father Lung cancer Brother Heart disease Brother Cancer Brother No problems noted. Brother No problems noted. Sister Chronic pain Fibromyalgia Sister No problems noted. Sister Breast cancer Son No problems noted. Daughter No problems noted. Social History Household Members: Spouse Housing: House Are you a primary acute care certified nursing assistant to a significant other at home: No Do you presently have visiting nurse or other home services: No Alcohol intake: current Alcohol intake frequency: a few times a month Patient Tobacco Use Status: Never used Tobacco service: No Assessment & Plan Assessment & Plan (1) S/P laparoscopic sleeve gastrectomy: Code(s): Z98.84 - Bariatric surgery status Plan nutrition follow up 11/23 at 9am video Patient Instructions: encouraged meeting fluid goal of 64oz daily. continue 2 shakes and 1 meal as preferred by pt.. Telehealth Telehealth Location of provider rendering services: practice address Location of patient: other (in her car, not driving ) Patient Identification confirmed using: Name, : Yes Telehealth method: video Patient verbally consented to treatment: Yes Patient verbally consented to billing insurance company: Yes Patient informed of any privacy concerns related to visit: Yes Minutes spent on Phone/Video with Pt.: 15 Coding Level of Care Code Nutr Indiv Subseq ([id number]) Diagnoses S/P laparoscopic sleeve gastrectomy Z98.84 Time Spent (min) 15
[2023-10-24 09:17] VITALS: BMI 28.7
== END 2023-10-24 09:16 | disposition home or self-care (01) ==
LOC: HO.HBS 09:12
PROVIDERS: PCP Nurse Practitioner Family; Visit Provider Dietitian, Registered
DX: Z98.84 Bariatric surgery status (principal)

== ENCOUNTER → 2023-10-24 09:12 | Outpatient (BNVA) | payer OTHER, SELFPAY | PROVIDERS: PCP Nurse Practitioner Family; Visit Provider Dietitian, Registered | DX: E66.9 Obesity, unspecified (principal); Z68.28 Body mass index [BMI] 28.0-28.9, adult; Z98.84 Bariatric surgery status; Z71.3 Dietary counseling and surveillance | CPT/HCPCS: 97803 ==

== ENCOUNTER 2023-11-23 09:36 | Outpatient (AMB) | payer OTHER, SELFPAY ==
--- NOTE | 2023-11-23 09:31 | A.OFFVIS_ITS ---
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 Required: No Allergies promethazine [From Phenergan] Allergy (Intermediate, Verified 06/26/23 13:33) Hallucinations Penicillins Allergy (Unknown, Verified 06/26/23 13:33) childhood allergy-reaction unknown HPI Nutrition Presentation Details LSG DOS 06/21/23 preop weight 176# - BMI 35.5 weight at 3 wks post op 159# weight at 2 MO PO 153.6 weight at 3MO PO 147# weight at 4MO PO 142# current weight 141# pt shares her goal is 110# -- recommended coming into office for tanita to monitor body comp Diet Assmnt Details 2 shakes each with 2 scoop 4in1 and 8oz fairlife meal: 2oz ground turkey and veg1-2oz pt would like to incorporate more food now and less shakes. She likes the celebrate brand Exercise: treadmill incline 4-5x per week varies her goal is 2,000 calories per week 500-600kcal cardio plus some strength tr aining Vitamins: in shakes Dietary counseling reduction Diagnosis Nutrition problem #1 overweight/obesity As related to (etiology) #1 excess energy intake and physical inactivity As evidenced by (sign/symptom) #1 high BMI Learning/Education Readiness to learn fair Stages of change action Most Recent Diabetes Results: Cholesterol 207 mg/dL 06/15/23 HDL Cholesterol 47 mg/dL 06/15/23 Triglycerides 104 mg/dL 06/15/23 Creatinine 0.69 mg/dL (0.5-1.4) 06/22/23 Blood Urea Nitrogen 8 mg/dL (9-16) L 06/22/23 Sodium 138 mmol/L (135-145) 06/22/23 Potassium 4.0 mmol/L (3.3-5.1) 06/22/23 Chloride 105 mmol/L (96-108) 06/22/23 Carbon Dioxide 24 mmol/L (22-29) 06/22/23 Calcium 8.8 mg/dL (8.4-10.2) 06/22/23 AST 12 U/L (5-31) 06/15/23 ALT 11 U/L (0-31) 06/15/23 Total Protein 7.4 g/dL (6.5-8.0) 06/15/23 Albumin 4.1 g/dL (3.5-5.0) 06/15/23 [facility] Medical History Genital herpes Hypothyroid BMI 36.0-36.9,adult BMI 37.0-37.9, adult Cholelithiasis DJD (degenerative joint disease) Hyperlipemia Anxiety Depression Morbid obesity Surgical History No history of previous surgery Family History Mother Diabetes Father Lung cancer Brother Heart disease Brother Cancer Brother No problems noted. Brother No problems noted. Sister Chronic pain Fibromyalgia Sister No problems noted. Sister Breast cancer Son No problems noted. Daughter No problems noted. Social History Household Members: Spouse Housing: House Are you a primary youth care specialist to a significant other at home: No Do you presently have visiting nurse or other home services: No Alcohol intake: current Alcohol intake frequency: a few times a month Patient Tobacco Use Status: Never used Tobacco service: No Assessment & Plan Assessment & Plan (1) Obesity (BMI 30-39.9): Code(s): E66.9 - Obesity, unspecified Plan due for 6 MO PA appt, then will resume f/u with me at 7 MO PO Patient Instructions: pt preference : 2 meals (3oz protein, 1oz veg) 1 celebrate rebuild shake 2 scoops with 8oz Fairlife = 75g protein add celebrate MVI and also provided list of alternatives begin calcium supplement as dietary calcium is not enough - needs an extra 600- 800 from supplementation. gave recommendations. maintain hydration Telehealth Telehealth Location of provider rendering services: practice address Location of patient: address on file (in her car, not driving ) Patient Identification confirmed using: Name, : Yes Telehealth method: video Patient verbally consented to treatment: Yes Patient verbally consented to billing insurance company: Yes Patient informed of any privacy concerns related to visit: Yes Minutes spent on Phone/Video with Pt.: 30 Coding Level of Care Code Nutr Indiv Subseq ([id number]) Diagnoses Obesity (BMI 30-39.9) E66.9 Time Spent (min) 30
[2023-11-23 09:39] VITALS: BMI 28.5
== END 2023-11-23 10:24 | disposition home or self-care (01) ==
LOC: HO.HBS 09:36
PROVIDERS: PCP Nurse Practitioner Family; Visit Provider Dietitian, Registered
DX: E66.9 Obesity, unspecified (principal)

== ENCOUNTER → 2023-11-23 09:36 | Outpatient (BNVA) | payer OTHER, SELFPAY | PROVIDERS: PCP Nurse Practitioner Family; Visit Provider Dietitian, Registered | DX: E66.9 Obesity, unspecified (principal); Z68.28 Body mass index [BMI] 28.0-28.9, adult; Z71.3 Dietary counseling and surveillance | CPT/HCPCS: 97803 ==

== ENCOUNTER 2024-12-12 08:59 | Outpatient (AMB) | payer OTHER, SELFPAY ==
[2024-12-12 08:21] VITALS: BMI 28.8
--- NOTE | 2024-12-12 08:21 | MHC.OFFVISWM ---
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 Presents for 1 year 6 month post op visit. Weight today is 142.6 pounds, with a BMI of 28.8. There has been a 55.8 pound weight loss,(initial weight 198.4 pounds) since starting the program on 03/05/23 reflecting a 28.1% total body weight loss and a weight loss of 32.9 pounds since surgery (operative weight 175.5 pounds) reflecting a 18.7% TBWL since surgery. No complaints of nausea, emesis, abdominal pain or reflux. Reports infrequent but normal bowel movements every 3-4 days and uses stool softeners regularly. using celebrate mvi Overall doing ok but not following a specific meal plan, sometimes using a pure protein or wrenchguys mobilelife rtd shake. smaller meals. She states she had full labs by her PCP last month and will fax us the results. States her goal is to have a weight under 120 pounds. Present meal plan includes: nothing structured Drinking 20-30 oz water ? Exercise routine includes: walking outside and on a treadmill treadmill 1-4 x per week, 500 bran per session walking outside other days, avg 2-3 mi. Any post op complications: none ABIGAIL: never DM: never HTN: never Hyperlipidemia: slightly high at her last labs GERD:?0-5 scale ??0 = no symptoms ??1 = symptoms noticeable but not bothersome 2 =symptoms bothersome but not daily ? 3 = symptoms bothersome and daily 4 = symptoms affect daily activities 5 = symptoms are incapacitating, unable to do daily activities ? How bad is the heartburn: 0 ? Heartburn while lying down: 0 ? Heartburn when standing up: 0 ? Heartburn after meals: 0 ? Does heartburn change your diet: 0 ? Does heartburn wake you up from sleep: 0 ? Do you have difficulty swallowin ? Do you have pain with swallowin ? If you take medicine for your reflux, does this affect your daily life: 0 Satisfaction with present condition - satisfied or not satisfied: somewhat satisfied [facility] Medical History Genital herpes Hypothyroid BMI 36.0-36.9,adult BMI 37.0-37.9, adult Cholelithiasis DJD (degenerative joint disease) Hyperlipemia Anxiety Depression Morbid obesity Surgical History No history of previous surgery Family History Mother Diabetes Father Lung cancer Brother Heart disease Brother Cancer Brother No problems noted. Brother No problems noted. Sister Chronic pain Fibromyalgia Sister No problems noted. Sister Breast cancer Son No problems noted. Daughter No problems noted. Social History Household Members: Spouse Housing: House Are you a primary healthcare representative to a significant other at home: No Do you presently have visiting nurse or other home services: No Alcohol intake: current Alcohol intake frequency: a few times a month Patient Tobacco Use Status: Never used Tobacco service: No Telehealth Telehealth Telehealth Platform: Telephone Location of provider rendering services: practice address Location of patient: address on file Patient Identification confirmed using: Name, : Yes Telehealth method: voice only Patient verbally consented to treatment: Yes Patient verbally consented to billing insurance company: Yes Patient informed of any privacy concerns related to visit: Yes Minutes spent on Phone/Video with Pt.: 20 Assessment & Plan Assessment & Plan (1) S/P laparoscopic sleeve gastrectomy: Code(s): Z98.84 - Bariatric surgery status Category: Surgical Plan: Patient has not been seen in approximately a year. She does state that she had labs done last month at her primary care physician's office. She was given our fax number to fax over the labs. I will supplement with vitamin levels as these likely were not checked at her primary care physician's office. She was additionally given information regarding the right BMI minda. She has been in encouraged to create structure and consistency in her meal plan. Additionally, discussed the importance of achieving her stated goal of weight less than 120. She will try to increase her exercise and do it more consistently. She was encouraged to text with any questions or concerns. We will arrange for follow-up appointment in approximately 6 weeks. Orders: Orders Vitamin A Today E78.5 - Hyperlipidemia, unspecified, K74.00 - Hepatic fibrosis, unspecified, K76.0 - Fatty (change of) liver, not elsewhere classified, Z98.84 - Bariatric surgery status Ferritin Today E78.5 - Hyperlipidemia, unspecified, K74.00 - Hepatic fibrosis, unspecified, K76.0 - Fatty (change of) liver, not elsewhere classified, Z98.84 - Bariatric surgery status Vitamin B1 Today E78.5 - Hyperlipidemia, unspecified, K74.00 - Hepatic fibrosis, unspecified, K76.0 - Fatty (change of) liver, not elsewhere classified, Z98.84 - Bariatric surgery status Vitamin B12 and Folate Today E78.5 - Hyperlipidemia, unspecified, K74.00 - Hepatic fibrosis, unspecified, K76.0 - Fatty (change of) liver, not elsewhere classified, Z98.84 - Bariatric surgery status Vitamin D 25-OH Total Today E78.5 - Hyperlipidemia, unspecified, K74.00 - Hepatic fibrosis, unspecified, K76.0 - Fatty (change of) liver, not elsewhere classified, Z98.84 - Bariatric surgery status Zinc Today E78.5 - Hyperlipidemia, unspecified, K74.00 - Hepatic fibrosis, unspecified, K76.0 - Fatty (change of) liver, not elsewhere classified, Z98.84 - Bariatric surgery status IRON PROFILE Today E78.5 - Hyperlipidemia, unspecified, K74.00 - Hepatic fibrosis, unspecified, K76.0 - Fatty (change of) liver, not elsewhere classified, Z98.84 - Bariatric surgery status
== END 2024-12-12 09:01 | disposition home or self-care (01) ==
LOC: HO.HBS 08:59
PROVIDERS: PCP Nurse Practitioner Family; Visit Provider Physician Assistant Surgical
DX: E66.3 Overweight (principal); Z68.28 Body mass index [BMI] 28.0-28.9, adult; Z90.3 Acquired absence of stomach [part of]; Z98.84 Bariatric surgery status
CPT/HCPCS: 99214

== ENCOUNTER 2025-03-04 10:00 | Outpatient (AMB) | payer OTHER, SELFPAY ==
[2025-03-04 10:11] VITALS: BMI 28.7
--- NOTE | 2025-03-04 10:11 | MHC.OFFVISWM ---
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 Presents for 1 year 9 month post op visit. Weight today is 142.4 pounds, with a BMI of 28.7. There has been a 55.8 pound weight loss,(initial weight 198.4 pounds) since starting the program on 03/05/23 reflecting a 28.1% total body weight loss and a weight loss of 32.9 pounds since surgery (operative weight 175.5 pounds) reflecting a 18.7% TBWL since surgery. No complaints of nausea, emesis, abdominal pain or reflux. Reports infrequent but normal bowel movements every 3-4 days and uses stool softeners regularly. using celebrate mvi Overall doing ok but not following a specific meal plan, sometimes using a pure protein or fairlife rtd shake. smaller meals. She states she had full labs by her PCP last month and will fax us the results. States her goal is to have a weight under 120 pounds. Started right bmi minda but didn't use the plan. Created but didn't follow it. Not following any meal plan. Not exercising much Present meal plan includes: nothing structured Drinking 20-30 oz water ? Exercise routine includes: walking outside and on a treadmill treadmill 2 x per week, 500 bran per session PFSH Medical History Genital herpes Hypothyroid BMI 36.0-36.9,adult BMI 37.0-37.9, adult Cholelithiasis DJD (degenerative joint disease) Hyperlipemia Anxiety Depression Morbid obesity Surgical History No history of previous surgery Family History Mother Diabetes Father Lung cancer Brother Heart disease Brother Cancer Brother No problems noted. Brother No problems noted. Sister Chronic pain Fibromyalgia Sister No problems noted. Sister Breast cancer Son No problems noted. Daughter No problems noted. Social History Household Members: Spouse Housing: House Are you a primary care worker to a significant other at home: No Do you presently have visiting nurse or other home services: No Alcohol intake: current Alcohol intake frequency: a few times a month Patient Tobacco Use Status: Never used Tobacco service: No Telehealth Telehealth Telehealth Platform: Telephone Location of provider rendering services: practice address Location of patient: address on file Patient Identification confirmed using: Name, : Yes Telehealth method: voice only Patient verbally consented to treatment: Yes Patient verbally consented to billing insurance company: Yes Patient informed of any privacy concerns related to visit: Yes Minutes spent on Phone/Video with Pt.: 12 Assessment & Plan Assessment & Plan (1) S/P laparoscopic sleeve gastrectomy: Code(s): Z98.84 - Bariatric surgery status Category: Surgical Plan: Patient reports no significant motivation and minimal exercise. She did create a meal plan but did not follow it. Encouraged to exercise daily, then incorporate the meal plan or sooner. We will have her return to the office for her 2 year follow-up. Encouraged to text with any questions or concerns.
== END 2025-03-04 10:23 | disposition home or self-care (01) ==
LOC: HO.HBS 10:22
PROVIDERS: PCP Nurse Practitioner Family; Visit Provider Physician Assistant Surgical
DX: E66.3 Overweight (principal); Z68.28 Body mass index [BMI] 28.0-28.9, adult; Z90.3 Acquired absence of stomach [part of]; Z98.84 Bariatric surgery status
CPT/HCPCS: 99213

== ENCOUNTER → 2025-03-04 10:00 | Outpatient (BNVA) | payer OTHER, SELFPAY | PROVIDERS: PCP Nurse Practitioner Family; Visit Provider Physician Assistant Surgical ==

== ENCOUNTER 2025-06-22 11:36 | Outpatient (AMB) | payer OTHER, SELFPAY ==
--- NOTE | 2025-06-22 11:41 | MHC.OFFVISWM ---
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 Presents for 2 year post op visit. Weight today is 142.6 pounds, with a BMI of 28.8. There has been a 55.8 pound weight loss,(initial weight 198.4 pounds) since starting the program on 03/05/23 reflecting a 28.1% total body weight loss and a weight loss of 32.9 pounds since surgery (operative weight 175.5 pounds) reflecting a 18.7% TBWL since surgery. No complaints of nausea, emesis, abdominal pain or reflux. Reports infrequent but normal bowel movements every 3-4 days and uses stool softeners regularly. using celebrate mvi Overall doing ok but not following a specific meal plan, sometimes using a pure protein or fairlife rtd shake. smaller meals. Not following right bmi. States her goal is to have a weight under 120 pounds. Started right bmi minda but didn't use the plan. Created but didn't follow it. Not following any meal plan. Not exercising much. Wants a meal plan w shakes and food, celebrate 4 in 1 wakes at 7 pm bed at 10 pm, dinner at 6 pm Oik[employer] yogurt ground turkey 2 oz eating ramdomly sometimes a fairlife rtd 30 gm shake Present meal plan includes: nothing structured Drinking 20-30 oz water ? Exercise routine includes: treadmill 4 x per week, 500 bran per session Any post op complications: none ABIGAIL: never DM: never HTN: never Hyperlipidemia: slightly high at her last labs GERD:?0-5 scale ??0 = no symptoms ??1 = symptoms noticeable but not bothersome 2 =symptoms bothersome but not daily ? 3 = symptoms bothersome and daily 4 = symptoms affect daily activities 5 = symptoms are incapacitating, unable to do daily activities ? How bad is the heartburn: 0 ? Heartburn while lying down: 0 ? Heartburn when standing up: 0 ? Heartburn after meals: 0 ? Does heartburn change your diet: 0 ? Does heartburn wake you up from sleep: 0 ? Do you have difficulty swallowin ? Do you have pain with swallowin ? If you take medicine for your reflux, does this affect your daily life: 0 Satisfaction with present condition - satisfied or not satisfied: somewhat satisfied [facility] Medical History Genital herpes Hypothyroid BMI 36.0-36.9,adult BMI 37.0-37.9, adult Cholelithiasis DJD (degenerative joint disease) Hyperlipemia Anxiety Depression Morbid obesity Surgical History No history of previous surgery Family History Mother Diabetes Father Lung cancer Brother Heart disease Brother Cancer Brother No problems noted. Brother No problems noted. Sister Chronic pain Fibromyalgia Sister No problems noted. Sister Breast cancer Son No problems noted. Daughter No problems noted. Social History Household Members: Spouse Housing: House Are you a primary foster care worker to a significant other at home: No Do you presently have visiting nurse or other home services: No Alcohol intake: current Alcohol intake frequency: a few times a month Patient Tobacco Use Status: Never used Tobacco service: No Physical Exam Const General: cooperative and no acute distress Orientation/consciousness: patient oriented x3 Resp Effort & Inspection: normal respiratory effort Auscultation: clear to auscultation bilaterally Cardio Rate: regular rate Rhythm: regular rhythm GI Inspection: Yes normal to inspection and Yes incision (well healed) Palpation (GI): Soft to palpation and no masses Neuro General: patient oriented x3 Assessment & Plan Assessment & Plan (1) S/P laparoscopic sleeve gastrectomy: Code(s): Z98.84 - Bariatric surgery status Category: Surgical Plan: Encouraged to get labs done that were ordered in November Patient wishes to have a meal plan with some capacity for adaptability based on her work requirements Celebrate 4 in 1 protein shake, 1 scoop in 8 oz of Lactaid milk Repeat shake Meal with 6 forks of protein and 6 forks of vegetables If she wishes to break it up, she certainly may do 1 scoop, half scoop, half scoop or half scoop x4. Add celebrate multivitamin every other day Increase exercise by 1 day Very her exercise routine utilizing treadmill, stationary bike, rowing machine, elliptical Return to clinic 6 months.
[2025-06-22 11:48] VITALS: BP 118/65; PULSE 64; TEMP 37.1; O2SAT 96; BMI 28.8
== END 2025-06-22 12:04 | disposition home or self-care (01) ==
LOC: HO.HBS 11:36
PROVIDERS: PCP Nurse Practitioner Family; Visit Provider Physician Assistant Surgical
DX: E66.3 Overweight (principal); Z68.28 Body mass index [BMI] 28.0-28.9, adult; Z90.3 Acquired absence of stomach [part of]; Z98.84 Bariatric surgery status
CPT/HCPCS: 99213; G2211